=== PATIENT | male | born 1950 | race Caucasian/White ===

== ENCOUNTER 2021-03-19 13:10 | Outpatient (CLI) | payer OTHER, SELFPAY ==
--- NOTE | 2021-03-19 | CT_ITS ---
WS: [id number] CT scan of the chest without IV contrast, additional two-dimensional coronal and sagittal reconstruct ion was performed. 03/19/2021 Clinical Data: F/U LUNG NODULES Comparison: None. DLP: 1165.[address] scans at [facility] use at least one of these dose optimization techniques: automat ed exposure control; mA and/or kV adjustment per patient size (includes targeted exams where dose is matched to clinical indication); or iterative reconstruction. Findings: There is a 0.4 cm pleural-based nodule in the right upper lobe seen best on axial image 30 of 59. No masses or effusions are seen. No pneumonia or pneumothorax is seen. There are coronary artery calc ifications. The heart size is normal with no pericardial effusion. The pulmonary arterial system and thoracic aorta demonstrate no dilatations. The trachea bifurcates normally into the bronchi. There is calcification in the wall of the thoracic aorta. There is no axillary or significant mediastinal avi nopathy. There is a small hiatal hernia. The upper abdomen demonstrates no abnormalities. The bones of the thorax show minimal osteoarthritis of the thoracic vertebral bodies. CT/CT chest wo con [id number] Impression: 1. 0.4 cm pleural-based nodule in the right upper lobe seen best on axial image 30 of 59. Recommend repeat CT scan of the chest in 12 months. 2. Negative for acute cardiopulmonary disease.
== END 2021-03-19 13:11 | disposition home or self-care (01) ==
PROVIDERS: PCP Nurse Practitioner; Visit Provider Nurse Practitioner
DX: R91.8 Other nonspecific abnormal finding of lung field (principal)
CPT/HCPCS: 71250

== ENCOUNTER 2022-07-01 12:02 | Emergency (ER) | payer OTHER, SELFPAY ==
[2022-07-01 12:13] VITALS: BP 153/85; PULSE 81; RESP 14; TEMP 36.8; O2SAT 96; BMI 36.6
--- NOTE | 2022-07-01 14:33 | XRR_ITS ---
PROCEDURE INFORMATION: Exam: XR Right Foot Exam date and time: 07/01/2022 2:50 PM Age: 71 years old Clinical indication: Swelling, leg or foot; Patient HX: RT foot pain abscess; Additional info: Foot swelling TECHNIQUE: Imaging protocol: Radiologic exam of the Right foot. Views: 3 or more views. COMPARISON: No relevant prior studies available. FINDINGS: Bones/joints: Normal. Soft tissues: Soft tissue swelling about the foot. Vasculature: Scattered vascular calcifications. XR/XR foot RT min 3V* 59000 IMPRESSION: 1. Negative for acute bony abnormality. 2. Scattered vascular calcifications. 3. Soft tissue swelling about the foot.
--- NOTE | 2022-07-01 14:43 | ED_ITS ---
HPI - Back Pain/Injury General: Chief Complaint: Back Pain/Injury Stated Complaint: abscess in right feet. Time Seen by Provider: 07/01/22 14:06 History of Present Illness: Patient is a 71-year-old male who comes to the ED with right foot swelling. [facility] of patient's right foot showed cellulitis with a possible 5 mm x 6 mm abscess. Patient said he has been having right foot swelling for over a month now. Denies any pain, but states that he does not have a lot of feeling in his right foot. Denies any erythema or warmth of the foot. Patient says he feels normal and denies any fevers. Associated symptoms: Deny abdominal pain, chills, dysuria, fatigue, fever(s), hematuria, nausea or vomiting Review of Systems Const: Denies: fever(s), chills or fatigue Eyes: Denies: change in vision or eye discomfort ENMT: Denies: throat pain, odynophagia, nasal discharge or nasal congestion Card: Denies: chest pain, palpitations, edema, swelling of feet/ankles, dyspnea on exertion or orthopnea Resp: Denies: dyspnea, productive cough or non-productive cough GI: Denies: abdominal pain, nausea, vomiting, diarrhea, constipation or hematochezia : Denies: flank pain, difficulty urinating, dysuria or hematuria Musc: Reports: extremity swelling (Right foot); Denies: neck pain or back pain Skin/Breast: Denies: rash or new lesions Neuro: Denies: headache(s), numbness in extremities or weakness in extremities [facility] ED PFSH: Medical History No pertinent family history Surgical History No pertinent past surgical history Physical Exam Const: COMMON NORMALS: patient oriented x3 and alert GENERAL APPEARANCE: cooperative and comfortable HENMT: COMMON NORMALS: normocephalic HEAD & SCALP: normocephalic MOUTH: Normal oral and palatal mucosa present THROAT: posterior oropharynx normal and uvula midline Neck/C-Spine: COMMON NORMALS: supple GENERAL: Yes normal visual inspection Resp: COMMON NORMALS: normal respiratory effort, No retractions, No use of accessory muscles and clear to auscultation bilaterally AUSCULTATION: clear to auscultation bilaterally Cardio: COMMON NORMALS: regular rate, regular rhythm, S1 normal heart sound present, S2 normal heart sound present, No gallops present (Cardio), No clicks present (Cardio), No murmurs present (Cardio) and Peripheral pulses 2+ throughout RATE: regular rate RHYTHM: regular rhythm HEART SOUNDS: S1 normal heart sound present and S2 normal heart sound present PERIPHERAL PULSES: Peripheral pulses 2+ throughout GI: COMMON NORMALS: Normal to inspection, nondistended, normoactive bowel sounds present, Soft to palpation, non-tender and no masses PALPATION: Yes Soft to palpation : COMMON NORMALS: Yes no CVA tenderness BLADDER/KIDNEY EXAM: Yes no CVA tenderness Back/Pelvis: COMMON NORMALS: no CVA tenderness Extremity: NARRATIVE EXTREMITY EXAM: Right foot?generalized swelling noted throughout foot. No erythema, warmth or tenderness seen. No red streaking seen on foot or ankle. Neuro: COMMON NORMALS: patient oriented x3 SENSORIUM/ORIENTATION: Yes alert GAIT: Yes Normal gait present Skin: GENERAL SKIN EXAM: dry skin Course Vital Signs: Vital signs: Vital Signs Temperature 98.3 F 07/01/22 12:13 Pulse Rate 84 07/01/22 17:06 Respiratory Rate 16 07/01/22 17:06 Blood Pressure 162/92 07/01/22 17:06 Pulse Oximetry 94 07/01/22 17:06 Oxygen Delivery Me thod 07/01/22 12:13 MDM - Back Pain/Injury Medical Decision Making Patient is a 71-year-old male who comes to the ED with right foot swelling. [facility] an [facility] of patient's right foot showed cellulitis with a possible 5 mm x 6 mm abscess. Patient said he has been having right foot swelling for over a month now. Denies any pain, but states that he does not have a lot of feeling in his right foot. Denies any erythema or warmth of the foot. Patient says he feels normal and denies any fevers. Vitals are stable. Patient appears in no acute distress or pain. Patient's right foot has some generalized swelling but no erythema or warmth noted. White blood cell count 8.2. Sodium of 127 but the rest of his labs were unremarkable. CRP was 5.6. Patient was given IV fluids and Rocephin here in the ED. Patient clinically is well and right foot does not appear to be an acute or emergent concern. I placed an order with case management for patient referred to pod iatry for follow-up on right foot cellulitis and small abscess. Patient will be discharged home on an antibiotic to treat the right foot cellulitis and podiatry can reevaluate patient after antibiotic treatment. Patient understood and agreed with plan. Labs I reviewed the patient's lab results. 07/01/22 14:45 07/01/22 14:45 Radiology Impressions Foot X-Ray 07/01/22 14:33 IMPRESSION: 1. Negative for acute bony abnormality. 2. Scattered vascular calcifications. 3. Soft tissue swelling about the foot. Laboratory Results WBC 8.2 10^3/uL (4.0-10.0) 07/01/22 14:45 RBC 4.54 10^6/uL (4.1-5.3) 07/01/22 14:45 Hgb 15.4 g/dL (11.7-16.6) 07/01/22 14:45 Hct 44.1 % (42.0-52.0) 07/01/22 14:45 MCV 97.1 fl (80-94) H 07/01/22 14:45 MCH 33.9 pg (28.0-34.0) 07/01/22 14:45 MCHC 34.9 g/dL (30.0-36.0) 07/01/22 14:45 RDW 12.1 % (12.1-15.1) 07/01/22 14:45 Plt Count 223 10^3/cmm (130-400) 07/01/22 14:45 MPV 9.7 fL (7.4-10.4) 07/01/22 14:45 Neut % (Auto) 59.8 % 07/01/22 14:45 Lymph % (Auto) 26.0 % 07/01/22 14:45 Cowley % (Auto) 10.1 % 07/01/22 14:45 Eos % (Auto) 3.2 % 07/01/22 14:45 Baso % (Auto) 0.5 % 07/01/22 14:45 Neut # (Auto) 4.94 10^3/uL (1.8-7.7) 07/01/22 14:45 Lymph # (Auto) 2.1 10^3/uL (0.8-4.8) 07/01/22 14:45 Cowley # (Auto) 0.8 10^3/uL (0.2-0.9) 07/01/22 14:45 Eos # (Auto) 0.3 10^3/uL (0.0-0.8) 07/01/22 14:45 Baso # (Auto) 0.0 10^3/uL (0.0-0.1) 07/01/22 14:45 Nucleated RBC % (auto) 0 % 07/01/22 14:45 Nucleated RBCs # 0.0 /100WBC 07/01/22 14:45 Sodium 127 mmol/L (136-145) L 07/01/22 14:45 Potassium 4.6 mmol/L (3.5-5.1) 07/01/22 14:45 Chloride 89 mmol/L (98-107) L 07/01/22 14:45 Carbon Dioxide 26 mmol/L (22-29) 07/01/22 14:45 Anion Gap 16.6 (5-19) 07/01/22 14:45 BUN 4 mg/dL (8-23) L 07/01/22 14:45 Creatinine 0.6 mg/dL (0.7-1.2) L 07/01/22 14:45 GFR Calculation 133.6 mL/min (90-130) H 07/01/22 14:45 Glucose 83 mg/dL (65-115) 07/01/22 14:45 Calculated Osmolality 260 mOsm/kg (285-295) L 07/01/22 14:45 Calcium 9.3 mg/dL (8.5-10.5) 07/01/22 14:45 Total Bilirubin 0.6 mg/dL (0.15-1.2) 07/01/22 14:45 AST 38 U/L (0-40) 07/01/22 14:45 ALT 31 U/L (0-41) 07/01/22 14:45 Alkaline Phosphatase 82 U/L (40-130) 07/01/22 14:45 C-Reactive Protein 5.6 mg/L (0.0-4.9) H 07/01/22 14:45 Total Protein 7.6 g/dL (6.6-8.7) 07/01/22 14:45 Albumin 4.2 g/dL (3.5-5.2) 07/01/22 14:45 Globulin 3.4 g/dL (1.3-4.6) 07/01/22 14:45 Discharge Plan Discharge Patient Disposition: Home Clinical Impression: Cellulitis of foot, right, Hyponatremia Condition: Stable Prescriptions: New cephalexin 500 mg capsule 500 mg PO Q6H 10 Days Qty: 40 0RF Discharge Orders: Discharge ED (Routine); Ordered 07/01/22 Ordered By: Dorian Vazquez Referrals: Deepthi Maciel FNP [Primary Care Provider] - Discharge Diet: Regular Discharge Activity: Resume usual activity Patient Instructions: Cellulitis (ED) Activity Restrictions/Additional Instructions: Follow-up with medical provider as directed. Case management should be contacting you in the next several days to set up appointment with electrical system specialist for further evaluation. Take medications as prescribed. Return to the ER or your medical provider if condition worsens. Please read and understand discharge instructions. Thank you for choosing [facility] for your healthcare needs today. Please realize this is an emergency room and that we are providing you with a medical screening exam and this may not be complete and all inclusive of all the testing and or work up that you may need to determine your ailment or severity of your illness. It is very important that you follow up as instructed or that you return to the Emergency Department should you have concerns or if your condition changes or worsens in any way. Coding Level of Care Code ED Family Services Specialist for Kavon Gibson Exam Comprehensive
[2022-07-01 15:08] LABS: Basophils % 0.5 %; Eosinophils # 0.3 10^3/uL (0.0-0.8); Eosinophils % 3.2 %; Hematocrit 44.1 % (42.0-52.0); Hemoglobin 15.4 g/dL (11.7-16.6); Lymphocytes # 2.1 10^3/uL (0.8-4.8); Mean Corpuscular HGB Conc 34.9 g/dL (30.0-36.0); Mean Corpuscular Hemoglobin 33.9 pg (28.0-34.0); Mean Corpuscular Volume 97.1 fl (80-94); Mean Platelet Volume 9.7 fL (7.4-10.4); Monocytes # 0.8 10^3/uL (0.2-0.9); Monocytes % 10.1 %; Neutrophils # 4.94 10^3/uL (1.8-7.7); Neutrophils % 59.8 %; Nucleated Red Blood Cells % 0 %; Platelet Count 223 10^3/cmm (130-400); Red Blood Count 4.54 10^6/uL (4.1-5.3); Red Cell Distribution Width 12.1 % (12.1-15.1); White Blood Count 8.2 10^3/uL (4.0-10.0)
[2022-07-01 15:27] LABS: Albumin Level 4.2 g/dL (3.5-5.2); Anion Gap 16.6 (5-19); Aspartate Amino Transferase 38 U/L (0-40); Calcium 9.3 mg/dL (8.5-10.5); Carbon Dioxide 26 mmol/L (22-29); Globulin 3.4 g/dL (1.3-4.6); Glucose 83 mg/dL (65-115); Potassium 4.6 mmol/L (3.5-5.1); Total Bilirubin 0.6 mg/dL (0.15-1.2); Total Protein 7.6 g/dL (6.6-8.7)
[2022-07-01 15:43] LABS: Alanine Aminotransferase 31 U/L (0-41); Alkaline Phosphatase 82 U/L (40-130); Blood Urea Nitrogen 4 mg/dL (8-23); C Reactive Protein 5.6 mg/L (0.0-4.9); Chloride 89 mmol/L (98-107); Glomerular Filtration Rate 133.6 mL/min (90-130); Osmolality Calculated 260 mOsm/kg (285-295); Sodium 127 mmol/L (136-145)
[2022-07-01] MEDS: cefTRIAXone 1,000 MG in lidocaine 1% 2.1 ML 999 MG IM (16:08)
[2022-07-01] MEDS: sodium chloride 0.9% 1,000 ML 999 ML IV (16:14)
[2022-07-01 17:06] VITALS: BP 162/92; PULSE 84; RESP 16; O2SAT 94
--- NOTE | 2022-07-04 10:32 | DCPLANNER ---
Addendum entered by Hazel Hernandez 07/07/22 13:42: Patient had a follow up appointment scheduled for 07.06.22 with podiatry - patient did attend appointment. Original Note: facility manager histology had message to schedule a follow up appointment for patient with podiatry. facility manager histology sent patients information to the front office staff at [facility]. Patients information will be printed and reviewed. Clinic will call patient with appointment information.
== END 2022-07-01 17:08 | disposition home or self-care (01) ==
PROVIDERS: Emergency Provider Physician Assistant; PCP Nurse Practitioner
DX: L03.115 Cellulitis of right lower limb (principal); E87.1 Hypo-osmolality and hyponatremia
CPT/HCPCS: 73630; 80053; 85025; 86140; 96372; 99284; J0696; J7030

== ENCOUNTER → 2022-07-06 13:00 | Outpatient (BNVA) | payer OTHER, SELFPAY | PROVIDERS: PCP Nurse Practitioner; Visit Provider Podiatrist Foot & Ankle Surgery | DX: M25.472 Effusion, left ankle (principal); M25.471 Effusion, right ankle | CPT/HCPCS: 99203 ==

== ENCOUNTER → 2022-07-13 15:40 | Outpatient (BNVA) | payer OTHER, SELFPAY | PROVIDERS: PCP Nurse Practitioner; Visit Provider Podiatrist Foot & Ankle Surgery | DX: M25.471 Effusion, right ankle (principal); M25.472 Effusion, left ankle | CPT/HCPCS: 85025; 85378; 85651; 86140; 99214 ==

== ENCOUNTER 2022-07-25 12:48 | Outpatient (CLI) | payer OTHER, SELFPAY ==
--- NOTE | 2022-07-25 12:45 | USCV_ITS ---
Femi Ledesma Age: 71 Gender: M : 1950 Exam Date: 07/25/2022 13:09 Ordering Phys: Rajesh Lee DPM Technologist: MALINA Exam Location: [facility] [place] Indication: RLE EDEMA HISTORY: Lower extremity edema. PROCEDURES: Venous duplex imaging was performed in only the right lower extremity. The following venous structures were evaluated: common femoral vein, profunda vein, proximal portion of the greater saphenous vein, superficial femoral vein, and the popliteal vein. In addition, the posterior tibial and peroneal trunk were evaluated. Serial compression, augmentation maneuvers, and spectral Doppler flow evaluation were performed. FINDINGS: No evidence of DVT seen in any vessel visualized at this time. Edema seen in Lower Right Calf area CONCLUSIONS No evidence of right lower extremity DVT. Edema Right lower calf Lyndon Huggins MD (Electronically Signed) Final Date: 25 July 2022 17:16 S
== END 2022-07-25 12:49 | disposition home or self-care (01) ==
LOC: RAD 12:50
PROVIDERS: PCP Nurse Practitioner; Visit Provider Podiatrist Foot & Ankle Surgery
DX: R60.0 Localized edema (principal)
CPT/HCPCS: 93971

== ENCOUNTER → 2022-08-16 10:28 | Outpatient (BNVA) | payer OTHER, SELFPAY | PROVIDERS: PCP Nurse Practitioner; Visit Provider Podiatrist Foot & Ankle Surgery | DX: M25.471 Effusion, right ankle (principal) | CPT/HCPCS: 99213 ==

== ENCOUNTER → 2023-05-16 09:56 | Outpatient (BNVA) | payer OTHER, SELFPAY | PROVIDERS: PCP Nurse Practitioner; Visit Provider Podiatrist Foot & Ankle Surgery | DX: B35.1 Tinea unguium (principal); I73.9 Peripheral vascular disease, unspecified | CPT/HCPCS: 11721 ==

== ENCOUNTER → 2023-07-27 13:13 | Outpatient (BNVA) | payer OTHER, SELFPAY | PROVIDERS: PCP Nurse Practitioner; Visit Provider Podiatrist Foot & Ankle Surgery | DX: B35.1 Tinea unguium (principal); I73.9 Peripheral vascular disease, unspecified | CPT/HCPCS: 11721 ==

== ENCOUNTER 2023-08-02 12:10 | Outpatient (CLI) | payer OTHER, SELFPAY ==
--- NOTE | 2023-08-02 12:16 | USCV_ITS ---
Femi Ledesma Age: 72 Gender: M : 1950 Exam Date: 08/02/2023 12:48 Ordering Phys: Deepthi Maciel Technologist: CT [place] [facility] [place]: pad Risk Factors: Previous Vascular Surgery: RIGHT LEFT BP: 165.0 / 81.00 BP: 170.0/ 84.00 0 0 Waveform Velocity (cm/s) Velocity (cm/s) Waveform Triphasic 67.5 Iliac Prox 90.7 Triphasic Triphasic 68.7 Iliac Mid 99.4 Triphasic Triphasic 84.3 Iliac Distal 91.8 Triphasic Triphasic 75.1 DAIRY CATTLE FARMER 90.7 Triphasic Triphasic 93.1 SFA Prox 75.2 Triphasic Triphasic 69.4 SFA Mid 86.0 Triphasic Triphasic SFA Dist Triphasic 90.4 89.3 Triphasic 73.0 POP 57.8 Triphasic Biphasic 48.9 COTTON JAMMER 52.6 Biphasic Biphasic 45.6 DPA 47.3 Biphasic FINDINGS Mild to moderate diffuse plaques bilaterally Normal/near normal arterial Doppler waveforms and velocities CONCLUSIONS 1. No significant arterial obstruction, based on the above findings. 2. Mild to moderate diffuse plaques bilaterally at the iliac, and common femoral arteries Dr Sommer Concepcion MD [facility] (Electronically Signed) Final Date: 02 August 2023 17:49 S
== END 2023-08-02 12:11 | disposition home or self-care (01) ==
PROVIDERS: PCP Nurse Practitioner; Visit Provider Nurse Practitioner
DX: I70.203 Unspecified atherosclerosis of native arteries of extremities, bilateral legs (principal)
CPT/HCPCS: 93925

== ENCOUNTER → 2023-08-17 11:51 | Outpatient (BNVA) | payer OTHER, SELFPAY | PROVIDERS: PCP Nurse Practitioner; Referring Provider Nurse Practitioner; Visit Provider Internal Medicine Cardiovascular Disease | DX: R07.9 Chest pain, unspecified (principal); I25.10 Atherosclerotic heart disease of native coronary artery without angina pectoris; I10 Essential (primary) hypertension; E78.5 Hyperlipidemia, unspecified; I73.9 Peripheral vascular disease, unspecified; I51.7 Cardiomegaly; I45.9 Conduction disorder, unspecified | CPT/HCPCS: 93005; 99204 ==

== ENCOUNTER 2023-08-31 11:46 | Outpatient (CLI) | payer OTHER, SELFPAY ==
--- NOTE | 2023-08-31 12:15 | USCV_ITS ---
Femi Ledesma Age: 73 Gender: M : 1950 Exam Date: 08/31/2023 12:30 Ordering Phys: Sommer Concepcion MD ([email or web address]) Technologist: MALINA [place] [facility] [place]: ASHD BP: 150 / 90 HR: 76 Rhythm: Sinus Technical Quality: Adequate MEASUREMENTS (Male / Female) Normal Values 2D ECHO LVOT Diameter 2.0 cm LV Ejection Fraction MOD 2C 58.1 % LV Ejection Fraction 2C AL 59.4 % LA Diameter 3.4 cm LA Width 4.0 cm LA Height 5.4 cm RA Width 3.3 cm RA Height 4.8 cm Aorta at Sinotubular Diameter 2.9 cm IVC Diameter 1.3 cm M-MODE Aortic Annulus Diameter 2.8 cm LA Ao Ratio MM 1.1 MV E Point Septal Separation 1.1 cm DOPPLER AV Peak Velocity 209.5 cm/s LVOT Peak Velocity 111.0 cm/s AV Area Cont Eq vti 1.6 cm squared AV Area Cont Eq pk 1.7 cm squared MV Peak Velocity 130.0 cm/s MV Area PHT 3.0 cm squared Mitral E to A Ratio 0.8 MV E' Velocity 48.0 cm/s Mitral E to MV E' Ratio 15.7 Mitral E to LV E' Lateral Ratio 13.1 Mitral E to LV E' Septal Ratio 19.4 TR Peak Velocity 132.2 cm/s TR Peak Gradient 7.0 mmHg TR Mean Velocity 102.3 cm/s TR Mean Gradient 4.4 mmHg TR Velocity Time Integral 29.4 cm TV Peak E Velocity 43.0 cm/s Right Atrial Pressure 3.0 mmHg Pulmonary Artery Systolic Pressu 10.0 mmHg PV Peak Velocity 100.0 cm/s RV Acceleration Time 0.1 s RV Ejection Time 0.3 s RV AcT/ET 0.3 FINDINGS Left Ventricle Normal left ventricular size and systolic function, EF 60 %. No regional wall motion abnormalities. Mild left ventricular hypertrophy. Grade I/IV diastolic dysfunction (abnormal relaxation filling pattern), normal to mildly elevated filling pressures. Right Ventricle The right ventricle is normal in size and function. Right Atrium The right atrium is normal in size. Left Atrium Mildly increased left atrial size. Mitral Valve Moderate mitral annular calcification. Aortic Valve Thickened aortic valve. Aortic valve sclerosis. Tricuspid Valve No gross abnormalities noted Pulmonic Valve Pulmonic valve not well visualized. Pericardium Normal pericardium without effusion. Aorta Normal aortic annulus size. IVC Normal inferior vena cava. CONCLUSIONS Normal left ventricular size and systolic function, EF 60 %. No regional wall motion abnormalities. Mild left ventricular hypertrophy. Grade I/IV diastolic dysfunction (abnormal relaxation filling pattern), normal to mildly elevated filling pressures. Mildly increased left atrial size. Moderate mitral annular calcification. Features of aortic valve sclerosis There is no pericardial effusion. There are no intracardiac masses. No similar previous studies are available for comparison Dr Sommer Concepcion MD [facility] (Electronically Signed) Final Date: 18 September 2023 08:46 S
== END 2023-08-31 11:47 | disposition home or self-care (01) ==
LOC: RAD 11:46
PROVIDERS: PCP Nurse Practitioner; Visit Provider Internal Medicine Cardiovascular Disease
DX: I25.10 Atherosclerotic heart disease of native coronary artery without angina pectoris (principal); I51.89 Other ill-defined heart diseases; I51.7 Cardiomegaly; I34.81 Nonrheumatic mitral (valve) annulus calcification
CPT/HCPCS: 93306

== ENCOUNTER → 2023-10-02 08:25 | Outpatient (BNVA) | payer OTHER, SELFPAY | PROVIDERS: PCP Nurse Practitioner; Visit Provider Podiatrist Foot & Ankle Surgery | DX: B35.1 Tinea unguium (principal); I73.9 Peripheral vascular disease, unspecified | CPT/HCPCS: 11721 ==

== ENCOUNTER → 2023-11-15 10:32 | Outpatient (BNVA) | payer OTHER, SELFPAY | PROVIDERS: PCP Nurse Practitioner; Visit Provider Internal Medicine Cardiovascular Disease | DX: I25.10 Atherosclerotic heart disease of native coronary artery without angina pectoris (principal); I73.9 Peripheral vascular disease, unspecified; E78.5 Hyperlipidemia, unspecified; I11.9 Hypertensive heart disease without heart failure | CPT/HCPCS: 99214 ==

== ENCOUNTER → 2023-12-04 09:22 | Outpatient (BNVA) | payer OTHER, SELFPAY | PROVIDERS: PCP Nurse Practitioner; Visit Provider Podiatrist Foot & Ankle Surgery | DX: B35.1 Tinea unguium (principal); I73.9 Peripheral vascular disease, unspecified | CPT/HCPCS: 11721 ==

== ENCOUNTER → 2024-02-08 09:20 | Outpatient (BNVA) | payer OTHER, SELFPAY | PROVIDERS: PCP Nurse Practitioner; Visit Provider Podiatrist Foot & Ankle Surgery | DX: B35.1 Tinea unguium (principal); I73.9 Peripheral vascular disease, unspecified | CPT/HCPCS: 11721 ==

== ENCOUNTER → 2024-04-11 09:33 | Outpatient (BNVA) | payer OTHER, SELFPAY | PROVIDERS: PCP Nurse Practitioner; Visit Provider Podiatrist Foot & Ankle Surgery | DX: B35.1 Tinea unguium (principal); I73.9 Peripheral vascular disease, unspecified | CPT/HCPCS: 11721 ==

== ENCOUNTER → 2024-05-24 10:27 | Outpatient (BNVA) | payer OTHER, SELFPAY | PROVIDERS: PCP Nurse Practitioner; Visit Provider Nurse Practitioner Family | DX: I25.10 Atherosclerotic heart disease of native coronary artery without angina pectoris (principal); I10 Essential (primary) hypertension; E78.5 Hyperlipidemia, unspecified; I73.9 Peripheral vascular disease, unspecified; Z87.891 Personal history of nicotine dependence | CPT/HCPCS: 99214 ==

== ENCOUNTER → 2024-06-13 09:51 | Outpatient (BNVA) | payer OTHER, SELFPAY | PROVIDERS: PCP Nurse Practitioner; Visit Provider Podiatrist Foot & Ankle Surgery | DX: L60.8 Other nail disorders (principal); B35.1 Tinea unguium; I73.9 Peripheral vascular disease, unspecified | CPT/HCPCS: 11721 ==

== ENCOUNTER → 2024-08-13 09:30 | Outpatient (BNVA) | payer OTHER, SELFPAY | PROVIDERS: PCP Nurse Practitioner; Visit Provider Podiatrist Foot & Ankle Surgery | DX: B35.1 Tinea unguium (principal); I73.9 Peripheral vascular disease, unspecified | CPT/HCPCS: 11721 ==

== ENCOUNTER → 2024-10-14 14:56 | Outpatient (BNVA) | payer OTHER, SELFPAY | PROVIDERS: PCP Nurse Practitioner; Visit Provider Podiatrist Foot & Ankle Surgery | DX: S91.309A Unspecified open wound, unspecified foot, initial encounter (principal) | CPT/HCPCS: 87070; 87075; 87205 ==

== ENCOUNTER → 2024-10-22 14:53 | Outpatient (BNVA) | payer OTHER, SELFPAY | PROVIDERS: PCP Nurse Practitioner; Visit Provider Podiatrist Foot & Ankle Surgery | DX: I73.9 Peripheral vascular disease, unspecified (principal); B35.1 Tinea unguium; L97.512 Non-pressure chronic ulcer of other part of right foot with fat layer exposed | CPT/HCPCS: 99213 ==

== ENCOUNTER → 2024-11-04 15:28 | Outpatient (BNVA) | payer OTHER, SELFPAY | PROVIDERS: PCP Nurse Practitioner; Visit Provider Internal Medicine Cardiovascular Disease | DX: I25.10 Atherosclerotic heart disease of native coronary artery without angina pectoris (principal); I10 Essential (primary) hypertension; E78.5 Hyperlipidemia, unspecified; I51.7 Cardiomegaly; R60.0 Localized edema; F10.10 Alcohol abuse, uncomplicated; R06.02 Shortness of breath | CPT/HCPCS: 36415; 80048; 83880; 99214 ==

== ENCOUNTER 2024-11-20 14:51 | Outpatient (CLI) | payer OTHER, SELFPAY ==
[2024-11-20 15:38] LABS: Anion Gap 16.2 (5-19); Blood Urea Nitrogen 6 mg/dL (8-23); Carbon Dioxide 24 mmol/L (22-29); Chloride 97 mmol/L (98-107); Glucose 100 mg/dL (65-115); NT Pro B Type Natriuretic Pept 1481 pg/mL (0-125); Osmolality Calculated 274 mOsm/kg (285-295); Potassium 4.2 mmol/L (3.5-5.1); Sodium 133 mmol/L (136-145)
== END 2024-11-20 14:52 | disposition home or self-care (01) ==
PROVIDERS: PCP Nurse Practitioner; Visit Provider Internal Medicine Cardiovascular Disease
DX: R06.02 Shortness of breath (principal); I10 Essential (primary) hypertension
CPT/HCPCS: 36415; 80048; 83880

== ENCOUNTER → 2024-12-17 13:58 | Outpatient (BNVA) | payer OTHER, SELFPAY | PROVIDERS: PCP Nurse Practitioner; Visit Provider Podiatrist Foot & Ankle Surgery | DX: I73.9 Peripheral vascular disease, unspecified (principal); B35.1 Tinea unguium; L84 Corns and callosities | CPT/HCPCS: 11056; 11721 ==

== ENCOUNTER → 2025-02-20 13:40 | Outpatient (BNVA) | payer OTHER, SELFPAY | PROVIDERS: PCP Nurse Practitioner; Visit Provider Podiatrist Foot & Ankle Surgery | DX: I73.9 Peripheral vascular disease, unspecified (principal); B35.1 Tinea unguium; L84 Corns and callosities | CPT/HCPCS: 11721 ==

== ENCOUNTER 2025-02-24 01:31 | Emergency (ER) | payer OTHER, SELFPAY ==
--- OUTSIDE RECORDS SUMMARY | 2024-12-25 05:36 | XMS_ITS | Encounter Summary ---
Author Name [facility] [facility] Address [address] [place] [id number] Care Team Providers Care Physics Tutor Name Role Phone PIPE TIDWELL Primary Care Provider Unavail able Insurance Providers: All historical and current Section Date Range: From patient's date of to the date document was created. This section includes the names of all active insurance providers for the patient. Insurance Provider Type of Coverage Plan Name Start of Policy Coverage End of Policy Coverage Group Number Member ID Insurance Provider's Telephone Number Policy Herzog's Name Patient's Relationship to Policy Herzog MEDICARE (WNR) MEDICARE (M) PART A Sep 28, 2017 PART A [id number] RUBIA HUGHES PATIENT Selected Encounter This section includes the information on record at [place] for the Encounter. Date/Time Encounter Type Encounter Description Reason Pro vider Source December 25, 2024 10:36 AM Outpatient Encounter ADMIN PAT ACTIVTIES (MASNONCT) IHE Encounter Template Text not used by [facility] Plan of Treatment: Future Appointments (+ 6 months) and Future Tests (+/- 45 days) The Plan of Treatment section includes future care activities for the patient from all [facility] treatment[facility]ilities. This section includes future appointments and future orders which are active, pending or scheduled. Future Appointments This section includes appointments that were scheduled to occur 6 months from the date of the Encounter, up to a maximum of 20 appointments. The data comes from all [place] treatment facilities. Appointment Date/Time Appointment Type Appointme nt Facility Name December 27, 2024 02:45 PM AMBULATORY - PSYCHIATRY [facility] December 27, 2024 02:46 PM AMBULATORY - MEDICINE [facility] Jan 06, 2025 02:50 PM AMBULATORY - MEDICINE [facility] Mar 24, 2025 11:00 AM AMBULATORY - MEDICINE [facility] Apr 04, 2025 02:15 PM AMBULATORY - PSYCHIATRY [facility] Apr 04, 2025 02:16 PM AMBULATORY - MEDICINE [facility] Active, Pending, and Scheduled Orders This section includes a listing of several types of active, pending, and scheduled orders, including clinic medications orders, diagnostic test orders, procedure orders and consult orders; where the start date of the order is 45 days before the date of the Encounter or 45 days after the date of theEncounter. The data comes from all [facility]. Test Date/Time Test Type Test Details Facility Name November 29, 2024 01:13 PM Consult Order COMMUNITY [facility]ARE-PODIATRY [id number] Cons Site Supervisor's Choice [facility] [place] Social History: Smoking Status (Most current) and Tobacco Use (All prior to encounter date) This section includes the most current, and the historical, smoking and tobacco- related health factors from the [place] facility where the Encounter took place. Current Smoking Status This section includes the most current smoking, or tobacco-related health factor, from the [place] facility where the Encounter took place. Date/Time Current Smoking Status Comment Facil ity Aug 23, 2024 02:15 PM VA-TOBACCO USE FORMER CIGARETTES [facility] Tobacco Use History This section includes a history of the smoking, or tobacco-related health factors, that were collected on or before the date of the Encounter. The data comes from the [place] facility where the Encounter took place. Date/Time Smoking Status/Tobacco Use Comment F acility Aug 23, 2024 02:15 PM VA-TOBACCO USE FORMER CIGARETTES [facility] Feb 12, 2021 09:00 AM VA-TOBACCO FORMER USER [facility] Feb 12, 2021 09:00 AM VA-TOBACCO QUIT 15 YRS OR MORE [facility] Feb 27, 2020 02:55 PM VA-TOBACCO FORMER USER [facility] Feb 27, 2020 02:55 PM VA-TOBACCO QUIT 5 TO < 15 YRS [facility] Oct 08, 2018 02:05 PM CURRENT NON-TOBACCO USER-HX OF U [facility] Oct 08, 2018 02:05 PM VA-TOBACCO FORMER USER [facility] Oct 08, 2018 02:05 PM VA-TOBACCO QUIT 5 TO < 15 YRS [facility] Oct 08, 2018 01:50 PM CURRENT NON-TOBACCO USER-HX OF U [facility] Encounter Notes: All associated encounter notes This section contains the clinical notes associated to the Encounter. Date/Time Encounter Note(s) Provider Source December 25, 2024 10:36 AM GENERAL MEDICINE N OTE: LOCAL TITLE: General Note PB STANDARD TITLE: GENERAL MEDICINE NOTE DATE OF NOTE: DECEMBER 25, 2024@10:36 ENTRY DATE: DECEMBER 25, 2024@10:36:06 AUTHOR: KITA GRAFF EXP COSIGNER: URGENCY: STATUS: COMPLETED Eye Care At-Risk Screen - L,N,PH,U: Patient identified to be at risk for the following eye condition(s): MACULAR DEGENERATION: Macular Degeneration Risk Factors Information: Reminder Term: VA-AMD RISK FACTORS Encounter Diagnosis: 06/05/2024@10:00 I25.10 (ICD-10-CM) Atherosclerotic Heart Disease of [place] Coronary Artery without Angina Pectoris rank: SECONDARY Prov. Narr. - Coronary arteriosclerosis ([facility] [id number]) Action: No Referral Ordered: Eye exam completed elsewhere by an Bridge Manager or Cost Engineer Exam Information: Date: November 26, 2024 Findings/Comment N/A Location: [facility] // MICHAEL FELICIANO [place] [facility] Signed: 12/25/2024 10:37 KITA GRAFF [facility]
--- OUTSIDE RECORDS SUMMARY | 2025-02-20 08:43 | XMS_ITS | Continuity of Care Document ---
Author Name [facility] Organization [facility] Care Team Providers Care Hand Ii Tube Bender Name Role Phone [facility] Unavailable Unavailable Problems Combined list of problems from Department of Defense and Veterans Affairs facilities. It does not include entries that were removed or entered in error. Problem Status Onset Date Problem Type Date of Resolution Comments Source Acute myocardial infarction Active 3 Condition Aug 23, 2012 Entered By: JULIANO FIELDS Comment: Stent placement; [facility] Hyperlipidemia (SNOMED CT 18146822) Active 6 Condition [facility] Acute deep vein thrombosis of lower limb Active Condition [facility] Alcohol Abuse (ICD-9-CM 305.00) Active Condition [facility] Alcohol dependence Active Condition [place] [facility] Benign essential hypertension (SNOMED CT 3446377) Active Condition [facility] Benign prostatic hypertrophy with outflow obstruction Active Condition [facility] 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 Condition [place] [facility] COPD - Chronic Obstructive Pulmonary Disease (SCT 61557238) Active Condition [facility] Coronary arteriosclerosis Active Condition [place] [facility] Coronary Artery Disease * (ICD-9-CM 414.9) Active Condition Jun 06, 2016 Entered By: MICHAEL BLANTON Comment: Ejection Fraction on cath: 35% [facility] Dupuytren contracture of left palm Active Condition [place] [facility] Eczema Active Condition [facility] Exposure to potentially hazardous substance Active Condition [facility] HTN - Hypertension Active Condition [place] [facility] Hyperlipidemia Active Condition [place] [facility] Low Back Pain (SCT 809686302) Active Condition [facility] Major depressive disorder Active Condition [place] [facility] Obesity (SCT 989572015) Active Condition [facility] Peripheral arterial occlusive disease Active Condition [facility] PTSD - Post-traumatic stress disorder (SNOMED CT 40560323) Active Condition [facility] Tobacco Use Disorder, Remission Active Condition [facility] Cataract, After NOS Inactive Condition 08/19/2014 Oct 22, 2013 Entered By: JITENDRA MCMAHAN Comment: right eyeAug 19, 2014 Entered By: JITENDRA MCMAHAN Comment: s/p yag right eye [facility] Eczema * (ICD-9-CM 692.9) Inactive Condition 12/06/2005 [facility] Lipoma * (ICD-9-CM 214.0/214.9) Inactive Condition 12/22/2004 [facility] Lymphadenopathy * (ICD-9-CM 785.6) Inactive Condition 12/06/[address] [facility] Peripheral vascular disease Inactive Condition 09/30/2016 [facility] Diagnosis: ICD-10-CM F43.12 Post-traumatic stress disorder, chronic Active Diagnosis [place] [facility] Diagnosis: ICD-10-CM J44.9 Chronic obstructive pulmonary disease, unspecified Active Diagnosis [facility] Diagnosis: ICD-10-CM Z71.1 Person w feared hl complaint in whom no diagnosis is made Active Diagnosis [facility] Diagnosis: ICD-10-CM L40.9 Psoriasis, unspecified Active Diagnosis [place] [facility] Diagnosis: ICD-10-CM L30.9 Dermatitis, unspecified Active Diagnosis [place] [facility] Diagnosis: ICD-10-CM E78.2 Mixed hyperlipidemia Active Diagnosis [facility] Diagnosis: ICD-10-CM I10 Essential (primary) hypertension Active Diagnosis [facility] Diagnosis: ICD-10-CM L20.9 Atopic dermatitis, unspecified Active Diagnosis [place] [facility] Diagnosis: ICD-10-CM M54.50 Low back pain, unspecified Active Diagnosis [facility] Medications Combined list of outpatient medications from Department of Defense and Veterans Affairs facilities.Medications provided include 1) outpatient medications from the last 15 months, and 2) patient-reported medications. Medication Details Route Status Patient Instructions Prescription Expires Prescription Number Last Dispense Date Ordering Provider Order Date Order Qty Source ALBUTEROL SO4 90MCG/ACTUA T (CFC-F) INHL,ORAL,8 .5GM INHALE 2 PUFFS BY ORAL INHALATI ON FOUR TIMES A DAY FOR BREATHIN G. SHAKE WELL. RINSE MOUTHPIE CE FREQUENT LY TO PREVENT CLOGGING . RESPIR ATORY (INHAL ATION) SUSPEND ED 05/09/2025 [id number] 5 Yury TIDWELL 2023 4 [facility] ALBUTEROL SO4 90MCG/ACTUA T (CFC-F) INHL,ORAL,8 .5GM INHALE 2 PUFFS BY ORAL INHALATI ON FOUR TIMES A DAY FOR BREATHIN G. SHAKE WELL. RINSE MOUTHPIE CE FREQUENT LY TO PREVENT CLOGGING . RESPIR ATORY (INHAL ATION) DISCONT INUED 06/26/2024 [id number] 4 Yury TIDWELL 2022 4 [facility] APREMILAST 30MG TAB TAKE ONE TABLET BY MOUTH TWICE A DAY ORAL ACTIVE 11/12/2025 [id number] 5 KING DUBONY 2024 60 [place] [facility] APREMILAST 30MG TAB TAKE ONE TABLET BY MOUTH TWICE A DAY ORAL DISCONT INUED 10/05/2025 [id number] 5 KING DUBONY 2024 60 [place] [facility] ASPIRIN 81MG TAB,CHEWABL E CHEW ONE TABLET BY MOUTH EVERY DAY ORAL ACTIVE Yury FIELDS L 2012 [facility] BETAMETHASO NE DIPROPIONAT E 0.05% OINT,TOP APPLY SPARINGL Y TO AFFECTED AREA(S) TWICE A DAY DIRECTED TO AREAS OF ITCHY RASH BELOW NECK TOPICA L ACTIVE 05/16/2025 [id number] 5 KING DUBONY 2023 45 [place] [facility] BUDESONIDE 160/GLYCOPY R 9/FORMOTER 4.8MCG/ACT INHL,ORAL,1 0.7GM INHALE 2 PUFFS INHALATI ON TWICE A DAY DIRECTED FOR COPD (CLEAN INHALER FOLLOWED BY 2 PRIMING PUFFS ONCE WEEKLY) INHALA TION ACTIVE 09/25/2025 [id number] 5 Yruy TIDWELL 2024 3 [facility] BUDESONIDE 160/GLYCOPY R 9/FORMOTER 4.8MCG/ACT INHL,ORAL,1 0.7GM INHALE 2 PUFFS INHALATI ON TWICE A DAY DIRECTED FOR COPD (CLEAN INHALER FOLLOWED BY 2 PRIMING PUFFS ONCE WEEKLY) INHALA TION DISCONT INUED 12/14/2024 [id number] 5 NICHOLE LEO 2023 3 [facility] BUPROPION HCL 200MG 12HR TAB,SA TAKE ONE TABLET BY MOUTH TWICE A DAY SWALLOW WHOLE - DO NOT CRUSH OR CHEW. ORAL SUSPEND ED 12/28/2025 [id number] 5 JOSE GIRALDO R 2024 180 [place] [facility] BUPROPION HCL 200MG 12HR TAB,SA TAKE ONE TABLET BY MOUTH TWICE A DAY SWALLOW WHOLE - DO NOT CRUSH OR CHEW. ORAL DISCONT INUED 08/24/2025 [id number] 5 JOSE GIRALDO NDA R 2024 180 [place] [facility] BUPROPION HCL 200MG 12HR TAB,SA TAKE ONE TABLET BY MOUTH TWICE A DAY SWALLOW WHOLE - DO NOT CRUSH OR CHEW. ORAL DISCONT INUED 04/20/2025 [id number] 4 JOSE GIRALDO NDA R 2023 180 [place] [facility] BUPROPION HCL 200MG 12HR TAB,SA TAKE ONE TABLET BY MOUTH TWICE A DAY SWALLOW WHOLE - DO NOT CRUSH OR CHEW. ORAL DISCONT INUED 11/23/2024 [id number] 4 JOSE GIRALDO NDRoya R 2023 180 [place] [facility] DUPILUMAB 150MG/ML INJ,PEN,2ML INJECT 300MG/2M L UNDER THE SKIN EVERY OTHER WEEK *KEEP IN REFRIGER ATOR* REMOVE FROM REFRIGER ATOR 45 MIN BEFORE INJECTIO N. SUBCUT ANEOUS DISCONT INUED 06/22/2025 [id number] 5 Yury TIDWELL R 2023 2 [place] [facility] DUPILUMAB 150MG/ML INJ,PEN,2ML INJECT 300MG/2M L UNDER THE SKIN EVERY OTHER WEEK *KEEP IN REFRIGER ATOR* REMOVE FROM REFRIGER ATOR 45 MIN BEFORE INJECTIO N. SUBCUT ANEOUS DISCONT INUED 03/09/2025 [id number] KING DUBON 2023 2 [place] [facility] FLUTICASONE 250MCG/SALM ETEROL 50MCG INHL,ORAL,D ISKUS,60 1 INHALATI ON BY MOUTH TWICE A DAY FOR BREATHIN G (OPEN DISKUS; CLICK ONLY ONCE; MAY INHALE TWICE TO COMPLETE DOSE; CLOSE WHEN FINISHED ) RINSE MOUTH AND SPIT AFTER EACH USE. ORAL DISCONT INUED BY PROVIDE R 12/12/2024 [id number] 4 Yury TIDWELL R 2023 3 [facility] FLUTICASONE 250MCG/SALM ETEROL 50MCG INHL,ORAL,D ISKUS,60 INHALE 1 INHALATI ON BY ORAL INHALATI ON TWICE A DAY FOR BREATHIN G (OPEN DISKUS; CLICK ONLY ONCE; MAY INHALE TWICE TO COMPLETE DOSE; CLOSE WHEN FINISHED ) RINSE MOUTH AND SPIT AFTER EACH USE. RESPIR ATORY (INHAL ATION) DISCONT INUED 02/07/2024 [id number] 4 Yury TIDWELL R 2022 3 [facility] FLUTICASONE 250MCG/SALM ETEROL 50MCG INHL,ORAL,D ISKUS,60 INHALE 1 INHALATI ON BY ORAL INHALATI ON TWICE A DAY FOR BREATHIN G (OPEN DISKUS; CLICK ONLY ONCE; MAY INHALE TWICE TO COMPLETE DOSE; CLOSE WHEN FINISHED ) RINSE MOUTH AND SPIT AFTER EACH USE. RESPIR ATORY (INHAL ATION) DISCONT INUED (EDIT) 12/11/2024 [id number] 4 Yury TIDWELL R 2023 3 [facility] FOLIC ACID 1MG TAB TAKE ONE TABLET BY MOUTH ONCE A DAY FOR FOLIC ACID SUPPLEME NTATION ORAL SUSPEND ED 12/28/2025 [id number] 5 JOSE GIRALDO R 2024 100 [place] [facility] FOLIC ACID 1MG TAB TAKE ONE TABLET BY MOUTH ONCE A DAY FOR FOLIC ACID SUPPLEME NTATION ORAL DISCONT INUED 08/24/2025 [id number] 5 KRISTALJOSE NDA R 2024 100 [place] [facility] FOLIC ACID 1MG TAB TAKE ONE TABLET BY MOUTH ONCE A DAY FOR FOLIC ACID SUPPLEME NTATION ORAL DISCONT INUED 04/20/2025 [id number] 4 KRISTALJOSE NDA R 2023 100 [place] [facility] FOLIC ACID 1MG TAB TAKE ONE TABLET BY MOUTH ONCE A DAY FOR FOLIC ACID SUPPLEME NTATION ORAL DISCONT INUED 11/23/2024 [id number] 4 JOSE GIRALDO NDA R 2023 100 [place] [facility] FUROSEMIDE 40MG TAB TAKE ONE TABLET BY MOUTH ONCE A DAY ORAL ACTIVE 05/04/2025 [id number] 5 Yury TIDWELL R 2024 90 [facility] FUROSEMIDE 40MG TAB TAKE ONE TABLET BY MOUTH ONCE A DAY ORAL DISCONT INUED 02/25/2025 [id number] MIKAEL LR MD 2024 90 [place] [facility] KETOCONAZOL E 2% CREAM,TOP APPLY LIGHTLY TO AFFECTED AREA(S) TWICE A DAY (EXTERNA L USE ONLY) ON THE BUTTOCKS TOPICA L ACTIVE 08/16/2025 [id number] 5 KING DUBON 2024 60 [place] [facility] LISINOPRIL 40MG TAB TAKE ONE TABLET BY MOUTH ONCE A DAY FOR HIGH BLOOD PRESSURE ORAL SUSPEND ED 02/04/2026 [id number] 5 Yury TIDWELL R 2024 90 [facility] LISINOPRIL 40MG TAB TAKE ONE TABLET BY MOUTH ONCE A DAY FOR HIGH BLOOD PRESSURE ORAL DISCONT INUED 04/20/2025 [id number] 5 Yury TIDWELL R 2023 90 [facility] LISINOPRIL 40MG TAB TAKE ONE-HALF TABLET BY MOUTH ONCE A DAY FOR HIGH BLOOD PRESSURE FOR HEART AND TO LOWER BLOOD PRESSURE THIS TABLET IS TO BE CUT IN HALF FOR YOUR DOSE ORAL DISCONT INUED (EDIT) 06/26/2024 [id number] 4 Yury TIDWELL 2022 45 [facility] METHOTREXAT E NA 2.5MG TAB TAKE SEVEN TABLETS BY MOUTH EVERY WEEK TAKE ON THE SAME DAY EACH WEEK. ORAL ACTIVE 03/20/2025 [id number] KING DUBON 2024 42 [place] [facility] METOPROLOL SUCCINATE 50MG TAB,SA TAKE ONE AND ONE-HALF TABLETS BY MOUTH ONCE A DAY FOR HEART/BL OOD PRESSURE . SWALLOW WHOLE, DO NOT CRUSH OR CHEW (TABLETS MAY BE CUT IN HALF). ORAL SUSPEND ED 02/04/2026 [id number] 5 Yury TIDWELL 2024 135 [facility] METOPROLOL SUCCINATE 50MG TAB,SA TAKE ONE AND ONE-HALF TABLETS BY MOUTH ONCE A DAY FOR HEART/BL OOD PRESSURE . SWALLOW WHOLE, DO NOT CRUSH OR CHEW (TABLETS MAY BE CUT IN HALF). ORAL DISCONT INUED 02/12/2025 [id number] 5 Yury TIDWELL 2023 135 [facility] METOPROLOL SUCCINATE 50MG TAB,SA TAKE ONE AND ONE-HALF TABLETS BY MOUTH ONCE A DAY FOR HEART/BL OOD PRESSURE . SWALLOW WHOLE, DO NOT CRUSH OR CHEW (TABLETS MAY BE CUT IN HALF). ORAL DISCONT INUED 02/07/2024 [id number] 4 Yury TIDWELL 2022 135 [facility] MULTIVITAMI NS CAP/TAB TAKE 1 TABLET BY MOUTH ONCE A DAY FOR NUTRITIO N/DIETAR Y SUPPLEME NTATION ORAL SUSPEND ED 12/28/2025 [id number] 5 JOSE GIRALDO R 2024 100 [place] [facility] MULTIVITAMI NS CAP/TAB TAKE 1 TABLET BY MOUTH ONCE A DAY FOR NUTRITIO N/DIETAR Y SUPPLEME NTATION ORAL DISCONT INUED 08/24/2025 [id number] 5 JSOE GIRALDO NDA R 2024 100 [place] [facility] MULTIVITAMI NS CAP/TAB TAKE 1 TABLET BY MOUTH ONCE A DAY FOR NUTRITIO N/DIETAR Y SUPPLEME NTATION ORAL DISCONT INUED 04/20/2025 [id number] 4 JOSE GIRALDO NDA R 2023 100 [place] [facility] MULTIVITAMI NS CAP/TAB TAKE 1 TABLET BY MOUTH ONCE A DAY FOR NUTRITIO N/DIETAR Y SUPPLEME NTATION ORAL DISCONT INUED 11/23/2024 [id number] 4 JOSE GIRALDO NDA R 2023 100 [place] [facility] POTASSIUM CHLORIDE 20MEQ TAB,SA (DISPERSIBL E) TAKE ONE TABLET BY MOUTH ONCE A DAY IN ADDITION TO FUROSEMI DE TAKE WITH FOOD ORAL ACTIVE 05/04/2025 [id number] 5 Yury TIDWELL R [address] [place] [address] POTASSIUM CHLORIDE 20MEQ TAB,SA (DISPERSIBL E) TAKE ONE TABLET BY MOUTH ONCE A DAY IN ADDITION TO FUROSEMI DE TAKE WITH FOOD ORAL DISCONT INUED 02/25/2025 [id number] MIKAEL LR MD 2024 90 [place] [facility] PRAVASTATIN NA 80MG TAB TAKE ONE TABLET BY MOUTH EVERY EVENING TO LOWER CHOLESTE ROL ORAL SUSPEND ED 09/25/2025 [id number] 5 Yury TIDWELL R [address] [place] [address] [facility] PRAVASTATIN NA 80MG TAB TAKE ONE TABLET BY MOUTH EVERY EVENING TO LOWER CHOLESTE ROL ORAL DISCONT INUED 02/13/2025 [id number] 5 Yury TIDWELL R [address] [place] [address] [facility] PRAVASTATIN NA 80MG TAB TAKE ONE TABLET BY MOUTH EVERY EVENING TO LOWER CHOLESTE ROL ORAL DISCONT INUED 02/07/2024 [id number] 4 Yury TIDWELL R [address] [place] [address] PRAZOSIN HCL 2MG CAP TAKE ONE CAPSULE BY MOUTH AT BEDTIME NEEDED MAY CAUSE DIZZINES S OR DROWSINE SS. ORAL SUSPEND ED 12/28/2025 [id number] 5 JOSE GIRALDO NDA R 2024 90 [place] [facility] PRAZOSIN HCL 2MG CAP TAKE ONE CAPSULE BY MOUTH AT BEDTIME NEEDED MAY CAUSE DIZZINES S OR DROWSINE SS. ORAL DISCONT INUED 08/24/2025 [id number] 5 JOSE GIRALDO NDA R 2024 90 [place] [facility] PRAZOSIN HCL 2MG CAP TAKE ONE CAPSULE BY MOUTH AT BEDTIME NEEDED MAY CAUSE DIZZINES S OR DROWSINE SS. ORAL DISCONT INUED 04/20/2025 [id number] 4 JOSE GIRALDO NDA R 2023 90 [place] [facility] PRAZOSIN HCL 2MG CAP TAKE ONE CAPSULE BY MOUTH AT BEDTIME NEEDED MAY CAUSE DIZZINES S OR DROWSINE SS. ORAL DISCONT INUED 11/23/2024 [id number] 4 JOSE GIRALDO NDA R 2023 90 [place] [facility] SILDENAFIL CITRATE 100MG TAB TAKE ONE TABLET BY MOUTH TWO TIMES PER WEEK NEEDED FOR ERECTILE DYSFUNCT ION (TAKE 60 MINUTES PRIOR TO SEXUAL ACTIVITY ) - LIMIT 6 DOSES PER 30 DAYS ORAL ACTIVE 02/04/2026 [id number] 5 Yury TIDWELL R [address] [place] [address] CB SILDENAFIL CITRATE 100MG TAB TAKE ONE TABLET BY MOUTH TWO TIMES PER WEEK NEEDED FOR ERECTILE DYSFUNCT ION (TAKE 60 MINUTES PRIOR TO SEXUAL ACTIVITY ) - LIMIT 6 DOSES PER 30 DAYS ORAL DISCONT INUED 03/13/2025 [id number] 5 Yury TIDWELL R 2023 18 [facility] SILDENAFIL CITRATE 100MG TAB TAKE ONE TABLET BY MOUTH TWO TIMES PER WEEK NEEDED FOR ERECTILE DYSFUNCT ION (TAKE 60 MINUTES PRIOR TO SEXUAL ACTIVITY ) - LIMIT 6 DOSES PER 30 DAYS ORAL DISCONT INUED 03/15/2024 [id number] 4 Yury TIDWELL R [address] [place] [address] [facility] TACROLIMUS 0.1% OINT,TOP APPLY TO RASH TO AFFECTED AREA(S) TWICE DAILY NEEDED (EXTERNA L USE ONLY) TOPICA L ACTIVE 02/04/2026 [id number] 5 Yury TIDWELL R 2024 60 [facility] TACROLIMUS 0.1% OINT,TOP APPLY TO RASH TO AFFECTED AREA(S) TWICE DAILY NEEDED (EXTERNA L USE ONLY) TOPICA L DISCONT INUED 05/09/2025 [id number] 4 Yury TIDWELL R 2023 60 [facility] TACROLIMUS 0.1% OINT,TOP APPLY TO RASH TO AFFECTED AREA(S) TWICE DAILY NEEDED (EXTERNA L USE ONLY) TOPICA L DISCONT INUED 01/23/2025 [id number] KING DUBON 2023 60 [place] [facility] TERBINAFINE HCL 250MG TAB TAKE ONE TABLET BY MOUTH ONCE A DAY FOR 30 DAYS ORAL 09/14/2024 [id number] 5 KING DUBON 2024 30 [place] [facility] THIAMINE 100MG TAB TAKE ONE TABLET BY MOUTH ONCE A DAY FOR VITAMIN B1 SUPPLEME NTATION ORAL SUSPEND ED 12/28/2025 [id number] 5 JOSE GIRALDO R 2024 100 [place] [facility] THIAMINE 100MG TAB TAKE ONE TABLET BY MOUTH ONCE A DAY FOR VITAMIN B1 SUPPLEME NTATION ORAL DISCONT INUED 08/24/2025 [id number] 5 JOSE GIRALDO R 2024 100 [place] [facility] THIAMINE 100MG TAB TAKE ONE TABLET BY MOUTH ONCE A DAY FOR VITAMIN B1 SUPPLEME NTATION ORAL DISCONT INUED 04/20/2025 [id number] 4 JOSE GIRALDO R 2023 100 [place] [facility] THIAMINE 100MG TAB TAKE ONE TABLET BY MOUTH ONCE A DAY FOR VITAMIN B1 SUPPLEME NTATION ORAL DISCONT INUED 11/23/2024 [id number] 4 JOSE GIRALDO NDA R 2023 100 [place] [facility] TRAZODONE HCL 100MG TAB TAKE ONE TABLET BY MOUTH AT BEDTIME FOR MOOD OR SLEEP. ORAL SUSPEND ED 12/28/2025 [id number] 5 JOSE GIRALDO NDA R 2024 90 [place] [facility] TRAZODONE [facility] 100MG TAB TAKE ONE TABLET BY MOUTH AT BEDTIME FOR MOOD OR SLEEP. ORAL DISCONT INUED 08/24/2025 [id number] 5 JOSE GIRALDO NDA R 2024 90 [place] [facility] TRAZODONE HCL 100MG TAB TAKE ONE TABLET BY MOUTH AT BEDTIME FOR MOOD OR SLEEP. ORAL DISCONT INUED 04/20/2025 [id number] 4 JOSE GIRALDO NDA R 2023 90 [place] [facility] TRAZODONE HCL 100MG TAB TAKE ONE TABLET BY MOUTH AT BEDTIME FOR MOOD OR SLEEP. ORAL DISCONT INUED 11/23/2024 [id number] 4 JOSE GIRALDO NDA R 2023 90 [place] [facility] TRIAMCINOLO NE ACETONIDE 0.1% OINT,TOP APPLY TO ITCHY RASH TO AFFECTED AREA(S) TWICE DAILY NEEDED (EXTERNA L USE ONLY) TOPICA L ACTIVE 02/04/2026 [id number] 5 Yury TIDWELL R 2024 454 [place] TRIAMCINOLO NE ACETONIDE 0.1% OINT,TOP APPLY TO ITCHY RASH TO AFFECTED AREA(S) TWICE DAILY NEEDED (EXTERNA L USE ONLY) TOPICA L DISCONT INUED 05/16/2025 [id number] 5 KING DUBON 2023 454 [place] [facility] TRIAMCINOLO NE ACETONIDE 0.1% OINT,TOP APPLY TO AFFECTED AREA(S) TWICE A DAY (EXTERNA L USE ONLY) TOPICA L DISCONT INUED 01/10/2025 [id number] KING DUBON 2023 80 [place] [facility] Allergies, Adverse Reactions, Alerts Combined list of allergies from Department of Defense and Veterans Affairs facilities. It does not include entries that were removed or entered in error. Substance Category Reaction Severity Reaction type Status Date Reported Comments Source CEPHALEXIN Propensity to adverse reactions to drug (finding) Burning sensation active 8 [facility] HYDROCHLOROT HIAZIDE Propensity to adverse reactions to drug (finding) Nausea and vomiting active 8 [facility] HYDROCHLOROT HIAZIDE Propensity to adverse reactions to drug (finding) Nausea and vomiting active 0 [facility] Immunizations Combined list of available immunizations from the Department of Defense and Veterans Affairs facilities. Immunization Series Date Given Administered By Site Reaction Lot Number CVX Code Drug Rubber Mixer Status Comments Source PNEUMOCOCCAL CONJUGATE PCV 13 2017 133 complet ed yes in [facility] [place] S ZOSTER LIVE 2015 121 complet ed [facility] TD(ADULT) UNSPECIFIED FORMULATION 2004 139 complet ed [facility] Results Combined list of recent chemistry, hematology and other laboratory results from Department of Defense and Veterans Affairs, ranging from 15 months to all on record, depending upon the facility. Order Name Results Value Reference Range Date Interpretation Specimen Comments Source DIRECT LDL (MA-PB) CHOLESTEROL IN LDL [MASS/VOLUME] IN SERUM OR PLASMA BY DIRECT ASSAY 34.1 mg/dL 0 - 99.9 10/02 Specimen Type: PLASMA No comment entered. Ordering Provider: NICHOLE LEO Report Released Date/Time : Jun 12, 2024 02:41 PM Reporting Lab: [place] [facility] [address] [place] [address] Performin g Lab: [place] [facility] [address] [place] [address] [facility] CHOLESTEROL PANEL (PB) CHOLESTEROL [MASS/VOLUME] IN SERUM OR PLASMA 138 mg/dL 0 - 200 10/02 Specimen Type: PLASMA No comment entered. Ordering Provider: NICHOLE LEO Report Released Date/Time : Jun 12, 2024 02:41 PM Reporting Lab: [place] [facility] [address] [place] [address] Performin g Lab: [place] [facility] [address] [place] [address] [facility] CHOLESTEROL PANEL (PB) TRIGLYCERIDE [MASS/VOLUME] IN SERUM OR PLASMA 58 mg/dL 0 - 150 10/02 Specimen Type: PLASMA No comment entered. Ordering Provider: NICHOLE LEO Report Released Date/Time : Jun 12, 2024 02:41 PM Reporting Lab: [place] [facility] [address] [place] [address] Performin g Lab: [place] [facility] [address] [place] [address] [facility] CHOLESTEROL PANEL (PB) CHOLESTEROL IN LDL [MASS/VOLUME] IN SERUM OR PLASMA BY CALCULATION 44.3 mg/dL 10/02 Specimen Type: PLASMA No comment entered. Ordering Provider: NICHOLE LEO Report Released Date/Time : Jun 12, 2024 02:41 PM Reporting Lab: [place] [facility] [address] [place] [address] Performin g Lab: [place] [facility] [address] [place] [address] [facility] CHOLESTEROL PANEL (PB) CHOLESTEROL IN HDL [MASS/VOLUME] IN SERUM OR PLASMA 82.1 mg/dL 40 10/02 H Specimen Type: PLASMA No comment entered. Ordering Provider: NICHOLE LEO Report Released Date/Time : Jun 12, 2024 02:41 PM Reporting Lab: [place] [facility] [address] [place] [address] Performin g Lab: [place] [facility] [address] [place] [address] [facility] CHOLESTEROL PANEL (PB) CHOLESTEROL IN HDL/CHOLESTER OL.TOTAL [MASS RATIO] IN SERUM OR PLASMA 59.5 25 10/02 Specimen Type: PLASMA No comment entered. Ordering Provider: NICHOLE LEO Report Released Date/Time : Jun 12, 2024 02:41 PM Reporting Lab: [place] [facility] [address] [place] [address] Performin g Lab: [place] [facility] [address] [place] [address] [facility] VITAMIN D, 25-HYDROXY 25-HYDROXYVIT JEFFERY D3 [MASS/VOLUME] IN SERUM OR PLASMA 86.4 ng/mL 30 - 96 10/02 Specimen Type: SERUM No comment entered. Ordering Provider: NICHOLE LEO Report Released Date/Time : Jun 12, 2024 02:41 PM Reporting Lab: [place] [facility] [address] [place] [address] Performin g Lab: [place] [facility] [address] [place] [address] [facility] FOLATE (PB) FOLATE [MASS/VOLUME] IN SERUM OR PLASMA 17.7 ng/mL 7 - 20 10/02 Specimen Type: SERUM No comment entered. Ordering Provider: NICHOLE LEO Report Released Date/Time : Jun 12, 2024 02:41 PM Reporting Lab: [place] [facility] [address] [place] [address] Performin g Lab: [place] [facility] [address] [place] [address] [facility] B12 COBALAMIN (VITAMIN B12) [MASS/VOLUME] IN SERUM OR PLASMA 583 pg/mL 213 - 816 10/02 Specimen Type: SERUM No comment entered. Ordering Provider: NICHOLE LEO Report Released Date/Time : Jun 12, 2024 02:41 PM Reporting Lab: [place] [facility] [address] [place] [address] 8 Performin g Lab: [place] [facility] [address] [place] [address] [facility] HGA1C HEMOGLOBIN A1C/HEMOGLOBI N.TOTAL IN BLOOD 5.9 4.0 - 6.0 10/02 Specimen Type: BLOOD No comment entered. Ordering Provider: NICHOLE LEO Report Released Date/Time : Jun 12, 2024 02:41 PM Reporting Lab: [place] [facility] [address] [place] [address] 8 Performin g Lab: [place] [facility] [address] [place] [address] 8 [place] [facility] COMPREHENSI VE METABOLIC PANEL CREATININE [MASS/VOLUME] IN SERUM OR PLASMA 0.66 mg/dL 0.7 - 1.3 10/02 L Specimen Type: PLASMA No comment entered. Ordering Provider: NICHOLE LEO Report Released Date/Time : Jun 12, 2024 02:41 PM Reporting Lab: [place] [facility] [address] [place] [address] 8 Performin g Lab: [place] [facility] [address] [place] [address] 8 [facility] COMPREHENSI VE METABOLIC PANEL UREA NITROGEN [MASS/VOLUME] IN SERUM OR PLASMA 6 mg/dL 9 - 25 10/02 L Specimen Type: PLASMA No comment entered. Ordering Provider: NICHOLE LEO Report Released Date/Time : Jun 12, 2024 02:41 PM Reporting Lab: [place] [facility] [address] [place] [address] 8 Performin g Lab: [place] [facility] [address] [place] [address] 8 [facility] COMPREHENSI VE METABOLIC PANEL GLUCOSE [MASS/VOLUME] IN SERUM OR PLASMA 118 mg/dL 72 - 99 10/02 H Specimen Type: PLASMA No comment entered. Ordering Provider: NICHOLE LEO Report Released Date/Time : Jun 12, 2024 02:41 PM Reporting Lab: [place] [facility] [address] [place] [address] 8 Performin g Lab: [place] [facility] [address] [place] [address] 8 [facility] COMPREHENSI VE METABOLIC PANEL SODIUM [MOLES/VOLUME ] IN SERUM OR PLASMA 131 meq/L 136 - 145 10/02 L Specimen Type: PLASMA No comment entered. Ordering Provider: NICHOLE LEO Report Released Date/Time : Jun 12, 2024 02:41 PM Reporting Lab: [place] [facility] [address] [place] [address] 8 Performin g Lab: [place] [facility] [address] [place] [address] 8 [facility] COMPREHENSI VE METABOLIC PANEL POTASSIUM [MOLES/VOLUME ] IN SERUM OR PLASMA 4.3 meq/L 3.5 - 5 10/02 Specimen Type: PLASMA No comment entered. Ordering Provider: NICHOLE LEO Report Released Date/Time : Jun 12, 2024 02:41 PM Reporting Lab: [place] [facility] [address] [place] [address] 8 Performin g Lab: [place] [facility] [address] [place] [address] 8 [facility] COMPREHENSI VE METABOLIC PANEL CHLORIDE [MOLES/VOLUME ] IN SERUM OR PLASMA 94 meq/L 98 - 107 10/02 L Specimen Type: PLASMA No comment entered. Ordering Provider: NICHOLE LEO Report Released Date/Time : Jun 12, 2024 02:41 PM Reporting Lab: [place] [facility] [address] [place] [address] 8 Performin g Lab: [place] [facility] [address] [place] [address] 8 [facility] COMPREHENSI VE METABOLIC PANEL CARBON DIOXIDE, TOTAL [MOLES/VOLUME ] IN SERUM OR PLASMA 28 meq/L 22 - 31 10/02 Specimen Type: PLASMA No comment entered. Ordering Provider: NICHOLE LEO Report Released Date/Time : Jun 12, 2024 02:41 PM Reporting Lab: [place] [facility] [address] [place] [address] 8 Performin g Lab: [place] [facility] [address] [place] [address] 8 [facility] COMPREHENSI VE METABOLIC PANEL CALCIUM [MASS/VOLUME] IN SERUM OR PLASMA 8.9 mg/dL 8.4 - 10.4 10/02 Specimen Type: PLASMA No comment entered. Ordering Provider: NICHOLE LEO Report Released Date/Time : Jun 12, 2024 02:41 PM Reporting Lab: [place] [facility] [address] [place] [address] 8 Performin g Lab: [place] [facility] [address] [place] [address] 8 [facility] COMPREHENSI VE METABOLIC PANEL PROTEIN [MASS/VOLUME] IN SERUM OR PLASMA 7.1 g/dL 6 - 8.6 10/02 Specimen Type: PLASMA No comment entered. Ordering Provider: NICHOLE LEO Report Released Date/Time : Jun 12, 2024 02:41 PM Reporting Lab: [place] [facility] [address] [place] [address] 8 Performin g Lab: [place] [facility] [address] [place] [address] 8 [facility] COMPREHENSI VE METABOLIC PANEL ALBUMIN [MASS/VOLUME] IN SERUM OR PLASMA 4.1 g/dL 3.4 - 5 10/02 Specimen Type: PLASMA No comment entered. Ordering Provider: NICHOLE LEO Report Released Date/Time : Jun 12, 2024 02:41 PM Reporting Lab: [place] [facility] [address] [place] [address] 8 Performin g Lab: [place] [facility] [address] [place] [address] 8 [facility] COMPREHENSI VE METABOLIC PANEL BILIRUBIN.TOT AL [MASS/VOLUME] IN SERUM OR PLASMA 0.5 mg/dL 0.2 - 1.2 10/02 Specimen Type: PLASMA No comment entered. Ordering Provider: NICHOLE LEO Report Released Date/Time : Jun 12, 2024 02:41 PM Reporting Lab: [place] [facility] [address] [place] [address] 8 Performin g Lab: [place] [facility] [address] [place] [address] 8 [facility] COMPREHENSI VE METABOLIC PANEL ALKALINE PHOSPHATASE [ENZYMATIC ACTIVITY/VOLU ME] IN SERUM OR PLASMA 66 U/L 40 - 150 10/02 Specimen Type: PLASMA No comment entered. Ordering Provider: NICHOLE LEO Report Released Date/Time : Jun 12, 2024 02:41 PM Reporting Lab: [place] [facility] [address] [place] [address] 8 Performin g Lab: [place] [facility] [address] [place] [address] 8 [facility] COMPREHENSI VE METABOLIC PANEL ASPARTATE AMINOTRANSFER ASE [ENZYMATIC ACTIVITY/VOLU ME] IN SERUM OR PLASMA 45 U/L 5 - 34 10/02 H Specimen Type: PLASMA No comment entered. Ordering Provider: NICHOLE LEO Report Released Date/Time : Jun 12, 2024 02:41 PM Reporting Lab: [place] [facility] [address] [place] [address] 8 Performin g Lab: [place] [facility] [address] [place] [address] 8 [facility] COMPREHENSI VE METABOLIC PANEL ALANINE AMINOTRANSFER ASE [ENZYMATIC ACTIVITY/VOLU ME] IN SERUM OR PLASMA 41 U/L 8 - 40 10/02 H Specimen Type: PLASMA No comment entered. Ordering Provider: NICHOLE LEO Report Released Date/Time : Jun 12, 2024 02:41 PM Reporting Lab: [place] [facility] [address] [place] [address] 8 Performin g Lab: [place] [facility] [address] [place] [address] [facility] COMPREHENSI VE METABOLIC PANEL GLOMERULAR FILTRATION RATE/1.73 SQ M.PREDICTED [VOLUME RATE/AREA] IN SERUM, PLASMA OR BLOOD BY CREATININE-BA SED FORMULA (CKD-EPI 2020) 100 10/02 Specimen Type: PLASMA No comment entered. Ordering Provider: NICHOLE LEO Report Released Date/Time : Jun 12, 2024 02:41 PM Reporting Lab: [place] [facility] [address] [place] [address] 8 Performin g Lab: [place] [facility] [address] [place] [address] [facility] BRAIN NATRIURETIC PEPTIDE NATRIURETIC PEPTIDE B [MASS/VOLUME] IN SERUM OR PLASMA 265 pg/mL 0 - 100 10/02 H Specimen Type: PLASMA No comment entered. Ordering Provider: Yury TIDWELL Report Released Date/Time : Sep 24, 2024 11:15 AM Reporting Lab: [place] [facility] [address] [place] [address] 8 Performin g Lab: [place] [facility] [address] [place] [address] 8 [facility] CBC LEUKOCYTES [#/VOLUME] IN BLOOD BY AUTOMATED COUNT 9.0 10*3/u L 3.6 - 11.2 10/02 Specimen Type: BLOOD No comment entered. Ordering Provider: Yury TIDWELL R Report Released Date/Time : Sep 24, 2024 11:15 AM Reporting Lab: [place] [facility] [address] [place] [address] 8 Performin g Lab: [place] [facility] [address] [place] [address] 8 [facility] CBC ERYTHROCYTES [#/VOLUME] IN BLOOD BY AUTOMATED COUNT 4.60 10*6/u L 4.10 - 5.70 10/02 Specimen Type: BLOOD No comment entered. Ordering Provider: Yury TIDWELL R Report Released Date/Time : Sep 24, 2024 11:15 AM Reporting Lab: [place] [facility] [address] [place] [phone] 8 Performin g Lab: [place] [facility] [address] [place] [phone] 8 [facility] CBC HEMOGLOBIN [MASS/VOLUME] IN BLOOD 15.6 g/dL 13.1 - 16.8 10/02 Specimen Type: BLOOD No comment entered. Ordering Provider: Yury TIDWELL R Report Released Date/Time : Sep 24, 2024 11:15 AM Reporting Lab: [place] [facility] [address] [place] [phone] 8 Performin g Lab: [place] [facility] [address] [place] [phone] 8 [facility] CBC HEMATOCRIT [VOLUME FRACTION] OF BLOOD 44.2 38.2 - 48.4 10/02 Specimen Type: BLOOD No comment entered. Ordering Provider: Yury TIDWELL R Report Released Date/Time : Sep 24, 2024 11:15 AM Reporting Lab: [place] [facility] [address] [place] [phone] 8 Performin g Lab: [place] [facility] [address] [place] [phone] 8 [facility] CBC MCV [ENTITIC VOLUME] BY AUTOMATED COUNT 96.1 fL 80.0 - 100.0 10/02 Specimen Type: BLOOD No comment entered. Ordering Provider: Yury TIDWELL R Report Released Date/Time : Sep 24, 2024 11:15 AM Reporting Lab: [place] [facility] [address] [place] [address] 8 Performin g Lab: [place] [facility] [address] [place] [address] 8 [facility] CBC MCH [ENTITIC MASS] BY AUTOMATED COUNT 33.9 pg 27.0 - 34.0 10/02 Specimen Type: BLOOD No comment entered. Ordering Provider: Yury TIDWELL Report Released Date/Time : Sep 24, 2024 11:15 AM Reporting Lab: [place] [facility] [address] [place] [address] 8 Performin g Lab: [place] [facility] [address] [place] [address] [facility] CBC MCHC [MASS/VOLUME] BY AUTOMATED COUNT 35.3 g/dL 33.0 - 36.0 10/02 Specimen Type: BLOOD No comment entered. Ordering Provider: Yury TIDWELL Report Released Date/Time : Sep 24, 2024 11:15 AM Reporting Lab: [place] [facility] [address] [place] [address] 8 Performin g Lab: [place] [facility] [address] [place] [address] 8 [facility] CBC PLATELETS [#/VOLUME] IN BLOOD BY AUTOMATED COUNT 237 10*3/u L 150 - 400 10/02 Specimen Type: BLOOD No comment entered. Ordering Provider: Yury TIDWELL R Report Released Date/Time : Sep 24, 2024 11:15 AM Reporting Lab: [place] [facility] [address] [place] [address] 8 Performin g Lab: [place] [facility] [address] [place] [address] 8 [facility] CBC PLATELET MEAN VOLUME [ENTITIC VOLUME] IN BLOOD BY AUTOMATED COUNT 10.0 fL 7.5 - 11.2 10/02 Specimen Type: BLOOD No comment entered. Ordering Provider: Yury TIDWELL R Report Released Date/Time : Sep 24, 2024 11:15 AM Reporting Lab: [place] [facility] [address] [place] [address] 8 Performin g Lab: [place] [facility] [address] [place] [address] 8 [facility] CBC ERYTHROCYTE DISTRIBUTION WIDTH [RATIO] BY AUTOMATED COUNT 12.2 11.8 - 15.1 10/02 Specimen Type: BLOOD No comment entered. Ordering Provider: Yury TIDWELL Report Released Date/Time : Sep 24, 2024 11:15 AM Reporting Lab: [place] [facility] [address] [place] [address] 8 Performin g Lab: [place] [facility] [address] [place] [address] 8 [facility] CBC LYMPHOCYTES/1 00 LEUKOCYTES IN BLOOD BY AUTOMATED COUNT 24.1 10/02 Specimen Type: BLOOD No comment entered. Ordering Provider: Yury TIDWELL R Report Released Date/Time : Sep 24, 2024 11:15 AM Reporting Lab: [place] [facility] [address] [place] [address] 8 Performin g Lab: [place] [facility] [address] [place] [address] 8 [facility] CBC MONOCYTES/100 LEUKOCYTES IN BLOOD BY AUTOMATED COUNT 7.1 10/02 Specimen Type: BLOOD No comment entered. Ordering Provider: Yury TIDWELL R Report Released Date/Time : Sep 24, 2024 11:15 AM Reporting Lab: [place] [facility] [address] [place] [address] 8 Performin g Lab: [place] [facility] [address] [place] [address] 8 [facility] CBC NEUTROPHILS/1 00 LEUKOCYTES IN BLOOD BY AUTOMATED COUNT 66.9 10/02 Specimen Type: BLOOD No comment entered. Ordering Provider: Yury TIDWELL R Report Released Date/Time : Sep 24, 2024 11:15 AM Reporting Lab: [place] [facility] [address] [place] [address] 8 Performin g Lab: [place] [facility] [address] [place] [address] 8 [facility] CBC EOSINOPHILS/1 00 LEUKOCYTES IN BLOOD BY AUTOMATED COUNT 0.9 10/02 Specimen Type: BLOOD No comment entered. Ordering Provider: Yury TIDWELL Report Released Date/Time : Sep 24, 2024 11:15 AM Reporting Lab: [place] [facility] [address] [place] [address] 8 Performin g Lab: [place] [facility] [address] [place] [address] 8 [facility] CBC BASOPHILS/100 LEUKOCYTES IN BLOOD BY AUTOMATED COUNT 0.3 10/02 Specimen Type: BLOOD No comment entered. Ordering Provider: Yury TIDWELL Report Released Date/Time : Sep 24, 2024 11:15 AM Reporting Lab: [place] [facility] [address] [place] [address] Performin g Lab: [place] [facility] [address] [place] [address] 8 [facility] CBC LYMPHOCYTES [#/VOLUME] IN BLOOD BY AUTOMATED COUNT 2.16 10*3/u L 0.77 - 4.50 10/02 Specimen Type: BLOOD No comment entered. Ordering Provider: Yury TIDWELL R Report Released Date/Time : Sep 24, 2024 11:15 AM Reporting Lab: [place] [facility] [address] [place] [address] 8 Performin g Lab: [place] [facility] [address] [place] [address] 8 [facility] CBC MONOCYTES [#/VOLUME] IN BLOOD BY AUTOMATED COUNT 0.64 10*3/u L 0.19 - 0.8 10/02 Specimen Type: BLOOD No comment entered. Ordering Provider: Yury TIDWELL Report Released Date/Time : Sep 24, 2024 11:15 AM Reporting Lab: [place] [facility] [address] [place] [address] 8 Performin g Lab: [place] [facility] [address] [place] [address] [facility] CBC NEUTROPHILS [#/VOLUME] IN BLOOD BY AUTOMATED COUNT 6.01 10*3/u L 2.10 - 8.00 10/02 Specimen Type: BLOOD No comment entered. Ordering Provider: Yury TIWDELL R Report Released Date/Time : Sep 24, 2024 11:15 AM Reporting Lab: [place] [facility] [address] [place] [address] 8 Performin g Lab: [place] [facility] [address] [place] [address] 8 [facility] CBC EOSINOPHILS [#/VOLUME] IN BLOOD BY AUTOMATED COUNT 0.08 10*3/u L 0.00 - 0.60 10/02 Specimen Type: BLOOD No comment entered. Ordering Provider: Yury TIDWELL Report Released Date/Time : Sep 24, 2024 11:15 AM Reporting Lab: [place] [facility] [address] [place] [address] 8 Performin g Lab: [place] [facility] [address] [place] [phone] 8 [facility] CBC BASOPHILS [#/VOLUME] IN BLOOD BY AUTOMATED COUNT 0.03 10*3/u L 0.00 - 0.20 10/02 Specimen Type: BLOOD No comment entered. Ordering Provider: Yury TIDWELL Report Released Date/Time : Sep 24, 2024 11:15 AM Reporting Lab: [place] [facility] [address] [place] [address] 8 Performin g Lab: [place] [facility] [address] [place] [address] 8 [facility] CBC IMMATURE GRANULOCYTES/ 100 LEUKOCYTES IN BLOOD BY AUTOMATED COUNT 0.7 10/02 Specimen Type: BLOOD No comment entered. Ordering Provider: Yury TIDWELL R Report Released Date/Time : Sep 24, 2024 11:15 AM Reporting Lab: [place] [facility] [address] [place] [address] 8 Performin g Lab: [place] [facility] [address] [place] [address] 8 [facility] CBC IMMATURE GRANULOCYTES [#/VOLUME] IN BLOOD BY AUTOMATED COUNT 0.06 10*3/u L 0.00 - 0.05 10/02 H Specimen Type: BLOOD No comment entered. Ordering Provider: Yury TIDWELL R Report Released Date/Time : Sep 24, 2024 11:15 AM Reporting Lab: [place] [facility] [address] [place] [address] 8 Performin g Lab: [place] [facility] [address] [place] [address] [facility] TSH (MA-PB) THYROTROPIN [UNITS/VOLUME ] IN SERUM OR PLASMA 1.195 u[IU]/ mL 0.47 - 5 06/05 Specimen Type: SERUM No comment entered. Ordering Provider: Yury TIDWELL R Report Released Date/Time : Jun 05, 2024 08:11 AM Reporting Lab: [place] [facility] [address] [place] [address] 8 Performin g Lab: [place] [facility] [address] [place] [address] [facility] Vital Signs Combined list of inpatient and outpatient Vital Signs from Department of Defense and Veterans Affairs, ranging from 12 months to all on record, depending upon the facility. Vital Sign Value Date Comments Source SYSTOLIC BLOOD PRESSURE 137 12/27/2024 14:45:00 [facility] DIASTOLIC BLOOD PRESSURE 75 12/27/2024 14:45:00 [facility] PULSE OXIMETRY 96 12/27/2024 14:45:00 [facility] WEIGHT 214.8 12/27/2024 14:45:00 [facility] BMI 35 kg/m2 12/27/2024 14:45:00 [facility] PAIN 2 12/27/2024 14:45:00 [facility] TEMPERATURE 98.9 12/27/2024 14:45:00 [facility] PULSE 44 12/27/2024 14:45:00 [facility] RESPIRATION 20 12/27/2024 14:45:00 [place] [facility] SYSTOLIC BLOOD PRESSURE 158 10/17/2024 13:48:00 [facility] [place] [facility] DIASTOLIC BLOOD PRESSURE 89 10/17/2024 13:48:00 [facility] [place] [facility] PULSE OXIMETRY 95 10/17/2024 13:48:00 [facility] [place] [facility] WEIGHT 220.3 10/17/2024 13:48:00 [place] [facility] BMI 36 kg/m2 10/17/2024 13:48:00 [place] [facility] HEIGHT 66.0 10/17/2024 13:48:00 [facility] PULSE 81 10/17/2024 13:48:00 [facility] RESPIRATION 16 10/17/2024 13:48:00 [facility] SYSTOLIC BLOOD PRESSURE 131 09/24/2024 10:49:00 [place] DIASTOLIC BLOOD PRESSURE 80 09/24/2024 10:49:00 [place] [facility] PULSE OXIMETRY 92 09/24/2024 10:49:00 [facility] [place] [facility] WEIGHT 223.4 09/24/2024 10:49:00 [place] [facility] BMI 36 kg/m2 09/24/2024 10:49:00 [facility] PAIN 0 09/24/2024 10:49:00 [facility] HEIGHT 66.0 09/24/2024 10:49:00 [place] PULSE 69 09/24/2024 10:49:00 [facility] RESPIRATION 20 09/24/2024 10:49:00 [facility] SYSTOLIC BLOOD PRESSURE 147 08/23/2024 14:16:03 [facility] DIASTOLIC BLOOD PRESSURE 82 08/23/2024 14:16:03 [facility] [place] [facility] PULSE OXIMETRY 93 08/23/2024 14:16:03 [facility] [place] [facility] WEIGHT 221.8 08/23/2024 14:16:03 [facility] [place] [facility] BMI 36 kg/m2 08/23/2024 14:16:03 [facility] [place] [facility] PAIN 5 08/23/2024 14:16:03 [facility] [place] [facility] TEMPERATURE 98.7 08/23/2024 14:16:03 [facility] PULSE 93 08/23/2024 14:16:03 [facility] RESPIRATION 20 08/23/2024 14:16:03 [facility] SYSTOLIC BLOOD PRESSURE 133 06/05/2024 08:32:00 [facility] DIASTOLIC BLOOD PRESSURE 84 06/05/2024 08:32:00 [facility] PULSE OXIMETRY 94 06/05/2024 08:32:00 [facility] WEIGHT 224.3 06/05/2024 08:32:00 [facility] BMI 36 kg/m2 06/05/2024 08:32:00 [facility] PAIN 0 06/05/2024 08:32:00 [facility] HEIGHT 66.0 06/05/2024 08:32:00 [facility] PULSE 69 06/05/2024 08:32:00 [facility] RESPIRATION 18 06/05/2024 08:32:00 [facility] Encounters Combined list of: 1) Encounters from [facility] facilities going backup to the last 18 months, not all [place] inpatient encounters are included; 2) Encounters from the Department of Defense facilities going backup to 280 months. Location Location Details Encounter Type Encounter Number Reason For Visit Attending Provider ADM Date DC Date Status Disposition Source [facility] Outpatient Encounter [id number] 08/24 [facility] Outpatient Encounter [id number] Diagnos is: ICD-10- CM J44.9 Chronic obstruc tive pulmona ry disease , unspeci fied Channing LEO W 09/04 [facility] Outpatient Encounter [id number] 10/01 [facility] Outpatient Encounter [id number] 11/14 [facility] Outpatient Encounter [id number] SARAN WETZEL 11/21 [facility] F[facility] [id number] Diagnos is: ICD-10- CM F43.12 Post-tr aumatic stress disorde r, chronic RUBEN GIRALDO DA R 11/22 [facility] MOD 30 MIN [id number] Diagnos is: ICD-10- CM F43.12 Post-tr aumatic stress disorde r, chronic RUBEN GIRALDO DA R 11/22 [facility] Outpatient Encounter [id number] 11/27 [facility] Outpatient Encounter [id number] 11/29 [facility] Outpatient Encounter [id number] 11/29 [facility] Outpatient Encounter [id number] 12/03 [facility] Outpatient Encounter [id number] Channing KAPLAN 12/07 [facility] Outpatient Encounter [id number] 12/07 [facility] Outpatient Encounter [id number] Channing KAPLAN 12/10 [facility] En[facility] [id number] 12/10 [facility] MTMS BY PHARM ADDL 15 MIN [id number] Diagnos is: ICD-10- CM J44.9 Chronic obstruc tive pulmona ry disease , unspeci fied Channing LEO W 12/13 [facility] OFFICE O/P EST LOW 20 MIN [id number] Diagnos is: ICD-10- CM M54.50 Low back pain, unspeci fied SUZY TIDWELLINE R 01/08 [facility] Outpatient Encounter [id number] 01/09 [facility] MTMS BY PHARM ADDL 15 MIN [id number] Diagnos is: ICD-10- CM J44.9 Chronic obstruc tive pulmona ry disease , unspeci fiChanning Casas W 01/10 [facility] OL DIG ASSMT&MGMT 1120 [id number] Diagnos is: ICD-10- CM L20.9 Atopic dermati tis, unspeci fied JUVENAL COFFEY 01/21 [facility] En[facility] [id number] 01/24 [facility] Outpatient Encounter [id number] Channing KAPLAN 02/12 [facility] Outpatient Encounter [id number] 02/20 [facility] [place] Outpatient Encounter [id number] 02/20 [place] [facility] [place] [facility] Outpatient Encounter [id number] 03/08 [place] [facility] [place] [facility] QNHP OL DIG ASSMT&MGMT 5-10 [id number] Diagnos is: ICD-10- CM L30.9 Dermati tis, unspeci fied DREAD BRANCH V 03/13 [place] [facility] Outpatient Encounter [id number] SARAN WETZEL 04/03 [facility] Outpatient Encounter [id number] 04/10 [facility] Encounter [id number] [id number] 04/11 [facility] Outpatient Encounter [id number] 04/15 [facility] Encounter [id number] 04/16 [facility] Out[facility] Encounter [id number] 04/18 [facility] N [facility] FEE [id number] Diagnos is: ICD-10- CM F43.12 Post-tr aumatic stress disorde r, chronic RUBEN GIRALDO 04/19 [facility] OFFICE O/P EST MOD 30 MIN [id number] Diagnos is: ICD-10- CM F43.12 Post-tr aumatic stress disorde r, chronic KRISTALRUBEN Bhakta ROBIN R 04/19 [place] [facility] Outpatient Encounter [id number] ASHER TOBIAS M 05/07 [facility] Outpatient Encounter [id number] 05/15 [facility] Outpatient Encounter [id number] 05/24 [facility] Outpatient Encounter [id number] 06/04 [place] [facility] Outpatient Encounter [id number] SUZY TIDWELL R 06/05 [facility] Outpatient Encounter [id number] Diagnos is: ICD-10- CM I10 Essenti al (primar y) hyperte nsion SUZY TIDWELL THERINE R 06/05 [facility] MTMS BY PHARM ADDL 15 MIN [id number] Diagnos is: ICD-10- CM E78.2 Mixed hyperli pidemia Channing LEO W 06/05 [facility] Outpatient Encounter [id number] 06/06 [facility] MTMS BY PHARM ADDL 15 MIN [id number] Diagnos is: ICD-10- CM J44.9 Chronic obstruc tive pulmona ry disease , unspeci fied Channing LEO W 06/12 [facility] Outpatient Encounter [id number] 06/13 [facility] Encounter [id number] 06/14 [facility] [id number] 07[facility] [facility] [facility] Out[facility] Encounter [id number] [id number] 07/11 [facility] Outpatient Encounter [id number] [id number] 07/11 [facility] Outpatient Encounter [id number] [id number] 07/16 [facility] Outpatient Encounter [id number] [id number] 07/[address] [facility] Out[facility] Encounter [id number] [id number] 08/07 [facility] Outpatient Encounter [id number] 08/[address] [facility] Outpatient Encounter [id number] 08/15 [facility] Outpatient Encounter [id number] [id number] Channing KAPLAN 08/16 [facility] MTMS BY PHARM ADDL 15 MIN [id number] Diagnos is: ICD-10- CM J44.9 Chronic obstruc tive pulmona ry disease , unspeci fied AHMETChanning W 08/16 [facility] Outpatient Encounter [id number] 08/21 [facility] Outpatient Encounter [id number] 08/21 [facility] FEE [id number] Diagnos is: ICD-10- CM F43.12 Post-tr aumatic stress disorde r, chronic RUBEN GIRALDO DA R 08/23 [facility] A[facility] EST MOD 30 [id number] Diagnos is: ICD-10- CM F43.12 Post-tr aumatic stress disorde r, chronic RUBEN GIRALDO DA R 08/23 [facility] Outpatient Encounter [id number] 09/20 [facility] Outpatient Encounter [id number] SUZY TIDWELL THERINE R 09/24 [facility] OFFICE O/P EST MOD 30 MIN [id number] Diagnos is: ICD-10- CM E78.2 Mixed hyperli pidemia SUZY TIDWELL THERINE R 09/24 [facility] Outpatient Encounter [id number] 09/24 [facility] Outpatient Encounter [id number] 09/25 [facility] Outpatient Encounter [id number] 09/26 [facility] [place] [facility] MTMS BY PHARM DISTRIBUTION ESTIMATOR 15 MIN [id number] Diagnos is: ICD-10- CM L30.9 Dermati tis, unspeci fikayden HOGANLER,DREAD V 10/04 [place] [facility] Outpatient Encounter [id number] 10/09 [facility] [place] [facility] MTMS BY PHARM DISTRIBUTION ESTIMATOR 15 MIN [id number] Diagnos is: ICD-10- CM L40.9 Psorias is, unspeci getachew BRANCH,DREAD V 10/10 [place] [facility] MTMS BY PHARM ADDL 15 MIN [id number] Diagnos is: ICD-10- CM J44.9 Chronic obstruc tive pulmona ry disease , unspeci Channing Jaimes W 10/15 [facility] MTMS BY PHARM DISTRIBUTION ESTIMATOR 15 MIN [id number] Diagnos is: ICD-10- CM L40.9 Psorias is, unspeci getachew HOGANLER,DREAD V 10/15 [place] [facility] OFFICE O/P EST MOD 30 MIN [id number] Diagnos is: ICD-10- CM Z71.1 Person w feared hlth complai nt in whom no diagnos is is made SUZY TIDWELL 10/17 [facility] MTMS BY PHARM ADDL 15 MIN [id number] Diagnos is: ICD-10- CM J44.9 Chronic obstruc tive pulmona ry disease , unspeci fied Channing LEO W 10/17 [facility] Outpatient Encounter [id number] 10/22 [facility] N [facility] Outpatient Encounter [id number] 10/25 [facility] Outpatient Encounter [id number] [id number] 11/05 [facility] N [facility] Outpatient Encounter [id number] 11/13 [facility] Outpatient Encounter [id number] 11/15 [facility] Outpatient Encounter [id number] [id number] 11/26 [facility] Outpatient Encounter [id number] 11/29 [facility] Outpatient Encounter [id number] 12/02 [facility] Outpatient Encounter [id number] Channing KAPLAN 12/03 [facility] Outpatient Encounter [id number] 12/25 [facility] Outpatient Encounter [id number] 12/26 [facility] FEE [id number] Diagnos is: ICD-10- CM F43.12 Post-tr aumatic stress disorde r, chronic RUBEN GIRALDO DA R 12/27 [facility] [place] [facility] SYNCH AUDIO-VIDE O EST MOD 30 [id number] Diagnos is: ICD-10- CM F43.12 Post-tr aumatic stress disorde r, chronic RUBEN GIRALDO DA R 12/27 [place] [facility] Outpatient Encounter [id number] 01/06 [facility] Outpatient Encounter [id number] 01/10 [facility] Outpatient Encounter [id number] 01/14 [facility] Outpatient Encounter [id number] Channing KAPLAN 02/03 [facility] Social History Combined list of available smoking, tobacco, and other social history from Department of Defense and Veterans Affairs facilities. Social History Type Response Date Comment Source Tobacco smoking status [place] [facility] USE FORMER CIGARETTES 08/23/2024 [facility] History of tobacco use MS-TOBACCO NEVER USED OTHER TYPE 08/23/2024 [facility] History of tobacco use VA-TOBACCO FORMER USER 07/19/2023 [facility] History of tobacco use VA-TOBACCO FORMER USER 07/06/2022 [facility] History of tobacco use VA-TOBACCO FORMER USER 02/12/2021 [facility] History of tobacco use VA-TOBACCO QUIT 5 TO < 15 YRS 02/27/2020 [facility] History of tobacco use VA-TOBACCO QUIT 5 TO < 15 YRS 10/08/2018 [facility] History of tobacco use CURRENT NON-TOBACCO USER-HX OF USE 10/08/2018 [facility] History of tobacco use QUIT TOBACCO >7 YEARS AGO 08/31/2017 I quit smoking on October 2005 [facility] History of tobacco use QUIT TOBACCO >7 YEARS AGO 10/03/2016 quit November 06, 2005 [facility] History of tobacco use QUIT TOBACCO >7 YEARS AGO 08/25/2008 [facility] History of tobacco use QUIT TOBACCO >12 MO and <7 YRS AGO 08/28/2007 [facility] Plan of Care List of future care activities from Department of Veterans Affairs facilities. Additional future care activities may be listed in the Assessment and Plan section. Date/Time Care Activity Care Activity Detail Facili ty 03/24/2025 AMBULATORY - MEDICINE AMBULATORY - MEDICI NE [facility]
[2025-02-24 01:33] VITALS: BP 149/93; PULSE 79; RESP 16; TEMP 36.8; O2SAT 95; BMI 36.6
--- OUTSIDE RECORDS SUMMARY | 2025-02-24 01:39 | XMS_ITS | Patient Health Record ---
Author Organization [facility] Address [address] [place] [address] Care Team Providers Care Medical Technologist Microbiology Name Role Phone Deepthi Leon Primary Care Provid er Unavailable Fazal Marshall Unavailable [phone] Allergies Allergen (clinical drug ingredient) Drug/Non Drug Allergy documented on EMR Reaction Allergy Type Onset Date Status cephalexin Cephalexin Unknown Drug Allergy Activ e hydrochlorothiazide Hydrochlorothiazide Unknown Drug Aller gy Active Reason For Referral No Information Medications Medication SIG (Take, Route, Frequency, Duration) Notes Start Date End Date Status Fluticasone-Salmeterol(sens or) Active Albuterol Active buPROPion HCl Active Prazosin HCl Active Lisinopril 40 MG Tablet 1 tablet Orally 1/2 daily Active Sildenafil Citrate A ctive Pravastatin Sodium A ctive traZODone HCl Active Aspirin 81 Active Metoprolol Succinate Active Social History Tobacco Use: Social History Observation Description Date Details (start date - stop date) Current Smoker NA - NA Social History Drugs/Alcohol: Social Info Question Answer Notes Alcohol Screen (Audit-C) Did you have a drink containing alcohol in the past year? Yes How often did you have a drink containing alcohol in the past year? 4 or more times a week (4 points) Points 4 Interpretation Positive Drugs Have you used drugs other than those for medical reasons in the past 12 months? No Tobacco Use: Social Info Question Answer Notes xTobacco Use/Smoking Are you a current smoker How often do you smoke cigarettes? every day Problems Problem Type SNOMED Code ICD Code Onset Dates Problem Status W/U Status Risk Notes Problem Disc degeneration, lumbar (M51.36) Active confirmed Problem Displacement of lumbar intervertebral disc (9978949432) Displacement of lumbar intervertebral disc (M51.26) Active confirmed Plan Of Treatment No Information Insurance Providers Payer Name Payer Address Payer Phone Subscriber Number Group Number Insured Name Patient Relationship to Insured Coverage Start Date Coverage End Date [employer] [address] [place] [phone] [id number] Femi Ledesma Self - patient is the insured Medical (General) History Medical History History ICD Code Measles Mumps Chicken Pox Heart Disease Arthritis Hernia Back trouble HBP Hemmorhoids Hives or eczema Anticoagulation therapy cataracts COPD CAD [place] Rashes/ Skin problems Surgical History Surgery Date(Month/Year) Tonsils Lumps removed from shoulder and neck Heart Stint Jul 2012 Cataracts Hospitalization History Reason Date(Month/Year) Heart Attack Jul 2012
[2025-02-24 02:17] LABS: Hematocrit 42.5 % (37-53); Hemoglobin 15.00 g/dL (11.27-16.99); Mean Corpuscular HGB Conc 35.3 g/dL (30-55); Mean Corpuscular Hemoglobin 33.9 pg (27-33); Mean Corpuscular Volume 95.9 fl (82-101); Nucleated Red Blood Cells % 0 %; Platelet Count 202 10^3/cmm (157-399); Red Blood Count 4.43 10^6/uL (3.85-5.65); White Blood Count 7.89 10^3/uL (3.29-11.43)
--- NOTE | 2025-02-24 02:20 | W.ED.EPISTAX ---
HPI - Epistaxis General: Chief complaint: Epistaxis Stated complaint: Nose Bleed Time Seen by Provider: 02/24/25 01:44 History of Present Illness: 74-year-old male gentleman with a history of coronary disease not on anticoagulants. He presents with a right-sided nosebleed that started 24 hours ago. Bleeding has been intermittent. Bleeding is controlled currently. He started methotrexate, taking his first dose 48 hours ago, and believes that that is the culprit. He takes a baby aspirin. No Plavix, again no anticoagulants. No history of low platelet counts. No other bleeding sites, although he does bruise easily. Related Data Home Medications ?Medication ?Instructions ?Recorded ?Confirmed aspirin 81 mg chewable tablet 81 mg PO DAILY 07/06/22 02/20/25 pravastatin 80 mg tablet 80 mg PO DAILY 07/06/22 02/20/25 bupropion HCl 200 mg tablet,12 hr 200 mg PO BID 08/17/23 02/20/25 sustained-release metoprolol succinate 50 mg 75 mg PO DAILY 08/17/23 02/20/25 tablet,extended release 24 hr prazosin 2 mg capsule 2 mg PO .HS 08/17/23 02/20/25 trazodone 100 mg tablet 100 mg PO .HS 08/17/23 02/20/25 albuterol sulfate 90 mcg/actuation 2 puff inhalation Q6H PRN 05/24/24 02/20/25 aerosol inhaler budesonide 160 mcg-glycopyr 9 2 inh inhalation BID 05/24/24 02/20/25 mcg-formot 4.8 mcg/actuation HFA inhaler (Breztri Aerosphere) folic acid 1 mg tablet 1 mg PO DAILY 05/24/24 02/20/25 krill oil 500 mg capsule mg PO 05/24/24 02/20/25 multivitamin (Multiple Vitamins 1 tab PO DAILY 05/24/24 02/20/25 tablet) thiamine HCl (vitamin B1) 100 mg 50 mg PO DAILY 05/24/24 02/20/25 tablet lisinopril 40 mg tablet 40 mg PO DAILY 11/04/24 02/20/25 Previous Rx's ?Medication ?Instructions ?Recorded furosemide 40 mg tablet 40 mg PO DAILY #90 tabs 11/27/24 potassium chloride 20 mEq 20 meq PO DAILY In addition to 11/27/24 tablet,extended release (K-Tab) furosemide #90 tabs Allergies Allergy/AdvReac Type Severity Reaction Status Date / Time cephalexin Allergy Mild Unknown Verified 02/20/25 13:41 hydrochlorothiazide Allergy Mild unknown Verified 02/20/25 13:41 [facility] ED PFSH: Medical History No pertinent family history Surgical History No pertinent past surgical history Social History Smoking and tobacco/nicotine status: never used tobacco/nicotine Alcohol intake: current Alcohol intake frequency: 0-2 Drinks per Day Substance/Drug Use: never Physical Exam Const: COMMON NORMALS: no acute distress GENERAL APPEARANCE: cooperative; not ill appearing and not frail appearing HENMT: COMMON NORMALS: normocephalic, atraumatic and Normal external nose present HEAD & SCALP: normocephalic and atraumatic FACE & SINUS: normal facial exam and face symmetric NOSE: Normal external nose present and Epistaxis present on the right anterior source and other (Small ulceration); no active bleeding Eye: COMMON NORMALS: Equal, round and reactive pupils present and EOMs intact bilaterally PUPIL: Yes Equal, round and reactive pupils present Neck/C-Spine: GENERAL: Yes trachea midline Chest: CHEST: Yes Symmetrical chest wall rise Resp: COMMON NORMALS: normal respiratory effort, No retractions, No use of accessory muscles and clear to auscultation bilaterally AUSCULTATION: clear to auscultation bilaterally Cardio: COMMON NORMALS: regular rate and regular rhythm RATE: regular rate RHYTHM: regular rhythm Neuro: ERIK COMA SCALE: document GCS findings Carpenter coma scale eye opening: Spontaneous Erik coma scale verbal response: Orientated Erik coma scale motor response: Obey commands Carpenter coma scale total score: 15 SENSORY EXAM: Yes extremities (intact) Psych: COMMON NORMALS: speech normal SPEECH: Yes normal speech Procedures Epistaxis Control Time Out Performed: No Nostril: right Nose Prepped With: oxymetazoline Direct Inspection: yes Cautery Used: silver nitrate Patient Tolerated Procedure: well and no complications Course Vital Signs: Vital signs: Vital Signs Temperature 98.2 F 02/24/25 01:33 Pulse Rate 73 02/24/25 02:42 Respiratory Rate 16 02/24/25 02:42 Blood Pressure 139/82 02/24/25 02:42 Pulse Oximetry 95 02/24/25 02:42 Oxygen Delivery Me thod Room Air 02/24/25 01:33 MDM - Epistaxis Medical Decision Making Blood pressure is down to 139/82. Bleeding still not occurring. Small ulceration in the floor of the right nare likely responsible. Cauterized with silver nitrate. Afrin soaked gel sponge to cover. He may remove in 24 hours if no bleeding. Platelet count is normal at 202. Coags are normal. He will be allowed discharge. ENT follow-up Lab Data 02/24/25 02:04 02/24/25 02:04 Laboratory Results WBC 7.89 10^3/uL (3.29-11.43) 02/24/25 02:04 RBC 4.43 10^6/uL (3.85-5.65) 02/24/25 02:04 Hgb 15.00 g/dL (11.27-16.99) 02/24/25 02:04 Hct 42.5 % (37-53) 02/24/25 02:04 MCV 95.9 fl (82-101) 02/24/25 02:04 MCH 33.9 pg (27-33) H 02/24/25 02:04 MCHC 35.3 g/dL (30-55) 02/24/25 02:04 RDW 12.4 % (12.1-15.1) 02/24/25 02:04 Plt Count 202 10^3/cmm (157-399) 02/24/25 02:04 MPV 9.3 fL (7.4-10.4) 02/24/25 02:04 Neut % (Auto) 58.5 % 02/24/25 02:04 Lymph % (Auto) 29.4 % 02/24/25 02:04 Dade % (Auto) 9.1 % 02/24/25 02:04 Eos % (Auto) 1.8 % 02/24/25 02:04 Baso % (Auto) 0.6 % 02/24/25 02:04 Neut # (Auto) 4.61 10^3/uL (1.8-7.7) 02/24/25 02:04 Lymph # (Auto) 2.3 10^3/uL (0.8-4.8) 02/24/25 02:04 Dade # (Auto) 0.7 10^3/uL (0.2-0.9) 02/24/25 02:04 Eos # (Auto) 0.1 10^3/uL (0.0-0.8) 02/24/25 02:04 Baso # (Auto) 0.1 10^3/uL (0.0-0.1) 02/24/25 02:04 Nucleated RBC % (auto) 0 % 02/24/25 02:04 Nucleated RBCs # 0.0 /100WBC 02/24/25 02:04 PT 13.20 SECONDS (12.1-14.9) 02/24/25 02:04 INR 0.94 (0.8-1.2) 02/24/25 02:04 APTT 27.2 SECONDS (23.9-36.7) 02/24/25 02:04 Sodium 127 mmol/L (136-145) L 02/24/25 02:04 Potassium 4.0 mmol/L (3.5-5.1) 02/24/25 02:04 Chloride 91 mmol/L (98-107) L 02/24/25 02:04 Carbon Dioxide 22 mmol/L (22-29) 02/24/25 02:04 Anion Gap 18.0 (5-19) 02/24/25 02:04 BUN 3 mg/dL (8-23) L 02/24/25 02:04 Creatinine 0.5 mg/dL (0.7-1.2) L 02/24/25 02:04 GFR Calculation Not Reportable 02/24/25 02:04 Glucose 98 mg/dL (65-115) 02/24/25 02:04 Calculated Osmolality 261 mOsm/kg (285-295) L 02/24/25 02:04 Calcium 9.1 mg/dL (8.5-10.5) 02/24/25 02:04 Total Bilirubin 0.5 mg/dL (0.15-1.2) 02/24/25 02:04 AST 40 U/L (0-40) 02/24/25 02:04 ALT 35 U/L (0-41) 02/24/25 02:04 Alkaline Phosphatase 82 U/L (40-130) 02/24/25 02:04 Total Protein 7.4 g/dL (6.6-8.7) 02/24/25 02:04 Albumin 4.0 g/dL (3.5-5.2) 02/24/25 02:04 Globulin 3.4 g/dL (1.3-4.6) 02/24/25 02:04 No radiology studies performed this visit Discharge Plan Discharge Patient Disposition: Home Clinical Impression: Epistaxis Condition: Stable Prescriptions: No Action thiamine HCl (vitamin B1) 100 mg tablet 50 mg PO DAILY multivitamin [Multiple Vitamins] Tablet 1 tab PO DAILY folic acid 1 mg tablet 1 mg PO DAILY krill oil 500 mg capsule PO albuterol sulfate 90 mcg/actuation HFA aerosol inhaler 2 puff inhalation Q6H PRN Breztri Aerosphere 160-9-4.8 mcg/actuation HFA aerosol inhaler 2 inh inhalation BID pravastatin 80 mg tablet 80 mg PO DAILY aspirin 81 mg tablet,chewable 81 mg PO DAILY bupropion HCl 200 mg tablet sustained-release 12 hr 200 mg PO BID metoprolol succinate 50 mg tablet extended release 24 hr 75 mg PO DAILY prazosin 2 mg capsule 2 mg PO .HS trazodone 100 mg tablet 100 mg PO .HS lisinopril 40 mg tablet 40 mg PO DAILY furosemide 40 mg tablet 40 mg PO DAILY Qty: 90 0RF potassium chloride [K-Tab] 20 mEq tablet extended release 20 meq PO DAILY Qty: 90 0RF Discharge Orders: Discharge ED (Routine); Ordered 02/24/25 Ordered By: Laureano Isaac Referrals: Ravindra Redman MD [Physician, Ear, Nose, Throat] - 1-3 days Deepthi Maciel FNP [Primary Care Provider, Nurse Practitioner] Patient Instructions: Nosebleed (ED), Opioid Safety, Pain Management, Patient Portal & [place] Instructions Activity Restrictions/Additional Instructions: As your platelet count is normal, it is not likely that methotrexate is the culprit. Call your doctor tomorrow and ask if you should stop the medication. Keep the sponge packing and if possible until Monday night. Do not blow your nose. If packing falls out, no need to repack. Call the ENT surgery clinic in the morning for a follow-up appointment. Let them know you were seen here with nosebleeds. Return for brisk bleeding, any other problems. Print Language: Puerto Rican Coding Level of Care Code ED Evp Strategy for Kavon Gibson
[2025-02-24] MEDS: gelatin 12-7 mm Sponge 1 EACH TOPICAL (02:27)
[2025-02-24 02:29] LABS: INR 0.94 (0.8-1.2); Prothrombin Time 13.20 SECONDS (12.1-14.9)
[2025-02-24 02:30] LABS: Partial Thromboplastin Time 27.2 SECONDS (23.9-36.7)
[2025-02-24 02:39] LABS: Alanine Aminotransferase 35 U/L (0-41); Albumin Level 4.0 g/dL (3.5-5.2); Alkaline Phosphatase 82 U/L (40-130); Anion Gap 18.0 (5-19); Aspartate Amino Transferase 40 U/L (0-40); Blood Urea Nitrogen 3 mg/dL (8-23); Calcium 9.1 mg/dL (8.5-10.5); Carbon Dioxide 22 mmol/L (22-29); Chloride 91 mmol/L (98-107); Creatinine Clr Calc Pharmacy 90.6856; Globulin 3.4 g/dL (1.3-4.6); Glucose 98 mg/dL (65-115); Osmolality Calculated 261 mOsm/kg (285-295); Potassium 4.0 mmol/L (3.5-5.1); Sodium 127 mmol/L (136-145); Total Protein 7.4 g/dL (6.6-8.7)
[2025-02-24 02:42] VITALS: BP 139/82; PULSE 73; RESP 16; O2SAT 95
== END 2025-02-24 02:45 | disposition home or self-care (01) ==
PROVIDERS: Emergency Provider Emergency Medicine; PCP Nurse Practitioner
DX: R04.0 Epistaxis (principal); Z79.82 Long term (current) use of aspirin
CPT/HCPCS: 36415; 80053; 85025; 85610; 85730; 99283; J9999

== ENCOUNTER → 2025-05-01 13:26 | Outpatient (BNVA) | payer OTHER, SELFPAY | PROVIDERS: PCP Nurse Practitioner; Visit Provider Podiatrist Foot & Ankle Surgery | DX: I73.9 Peripheral vascular disease, unspecified (principal); B35.1 Tinea unguium; L84 Corns and callosities | CPT/HCPCS: 11721 ==

== ENCOUNTER → 2025-05-06 09:54 | Outpatient (BNVA) | payer OTHER, SELFPAY | PROVIDERS: PCP Nurse Practitioner; Visit Provider Internal Medicine Cardiovascular Disease | DX: I11.0 Hypertensive heart disease with heart failure (principal); I50.32 Chronic diastolic (congestive) heart failure; I25.10 Atherosclerotic heart disease of native coronary artery without angina pectoris; E78.5 Hyperlipidemia, unspecified; F10.10 Alcohol abuse, uncomplicated; Z98.61 Coronary angioplasty status | CPT/HCPCS: 99214 ==

== ENCOUNTER → 2025-07-09 14:00 | Outpatient (BNVA) | payer OTHER, SELFPAY | PROVIDERS: PCP Nurse Practitioner; Visit Provider Podiatrist Foot & Ankle Surgery | DX: I73.9 Peripheral vascular disease, unspecified (principal); B35.1 Tinea unguium; L84 Corns and callosities | CPT/HCPCS: 11721 ==